=== PATIENT | female | born 1960 | race Caucasian/White ===

== ENCOUNTER → 2017-05-06 09:11 | Outpatient (REF) | payer OTHER, SELFPAY ==
[2017-05-06 14:03] LABS: Amphetamine/Metha Screen,Urine Negative ng/mL (<1000); Barbiturates Screen,Urine Positive ng/mL (<200); Benzodiazepines Screen,Urine Positive ng/mL (200); Cannabinoid Screen,Urine Negative ng/mL (<50); Cocaine Screen,Urine Negative ng/g (<300); Methadone Screen,Urine Negative ng/mL (<300); Opiate Screen,Urine Negative ng/mL (<300); Phencyclidine Screen,Urine Negative ng/mL (<25)
[2017-05-06 14:08] LABS: Basophils # 0.1 K/mm3 (0-0.2); Basophils % 0.9 % (0.1-2.0); Eosinophils # 0.3 K/mm3 (0.0-0.4); Eosinophils % 4.5 % (0.1-12.0); Hematocrit 47.9 % (37.0-47.0); Hemoglobin 15.6 g/dL (12.2-16.2); Lymphocytes # 1.5 K/mm3 (0.7-4.5); Mean Corpuscular HGB Conc 32.5 g/dL (31.8-35.4); Mean Corpuscular Hemoglobin 29.3 pg (27.0-31.2); Mean Corpuscular Volume 90.1 fl (81-99); Mean Platelet Volume 9.1 fl (7.4-10.4); Monocytes # 0.4 K/mm3 (0.1-1.0); Monocytes % 7.1 % (1.7-9.3); Neutrophils # 3.7 K/mm3 (1.8-7.8); Neutrophils % 62.5 % (37.0-80.0); Platelet Count 276 K/mm3 (142-424); Red Blood Count 5.32 M/mm3 (4.20-5.40); Red Cell Distribution Width 12.8 % (11.5-17.5); White Blood Count 5.9 K/mm3 (4.8-10.8)
[2017-05-06 14:26] LABS: Alanine Aminotransferase 17 U/L (12-78); Albumin/Globulin Ratio 1.1 (1.1-1.8); Alkaline Phosphatase 72 U/L (46-116); Aspartate Amino Transferase 16 U/L (15-37); Bilirubin,Total 0.4 mg/dL (0.2-1.0); Blood Urea Nitrogen 14 mg/dL (7-18); Calcium 9.4 mg/dL (8.5-10.1); Carbon Dioxide 29 mmol/L (21.0-32.0); Chloride 103 mmol/L (98-107); Chol/HDL Ratio 5.1 (1-3.5); Cholesterol 258 mg/dL (140-200); Creatinine,Serum 0.94 mg/dL (0.55-1.02); Estimated Glomerular Filt Rate 62 ml/min (>60); Free T4 (Free Thyroxine) 0.85 ng/dl (0.76-1.46); GFR (African American) 75 ML/MIN (>60); Globulin 3.5 gm/dl (1.3-3.2); Glucose 100 mg/dL (74-106); HDL Cholesterol 51 mg/dL (29-89); LDL Cholesterol 168 mg/dL (0-130); Sodium 139 mmol/L (136-145); Thyroid Stimulating Hormone 8.97 uIU/ml (0.358-3.740); Total Protein,Serum 7.5 gm/dL (6.4-8.2); Triglycerides 194 mg/dL (30-200); VLDL Cholesterol 39 mg/dL (0-40)
[2017-05-06 14:51] LABS: Hemoglobin A1C 5.7 % (0.0-7.0)
[2017-05-07 13:38] LABS: Vitamin D 25 Hydroxy 35.3 ng/mL (30.0-100.0)
== END ==
LOC: LAB 09:11
PROVIDERS: Visit Provider Nurse Practitioner Family
DX: Z79.899 Other long term (current) drug therapy (principal); N15.9 Renal tubulo-interstitial disease, unspecified; R53.83 Other fatigue
CPT/HCPCS: 80053; 80061; 80305; 82652; 83036; 84439; 84443; 85025; 87086

== ENCOUNTER 2017-07-05 18:21 | Emergency (ER) | payer OTHER, SELFPAY ==
--- NOTE | 2017-07-05 18:26 | XR_ITS ---
XR ankle LT min 3V HISTORY: Post traumatic pain ITS.REASON: FELL AT HOME ORDERING PHYSICIAN: Clari Swann PATIENT AGE: 57 years COMPARISON: None FINDINGS: No obvious fracture or dislocation. There is prominent soft tissue swelling overlying the lateral malleolus. There is also increased density along the anterior aspect of the ankle joint suggesting an underlying effusion. IMPRESSION: 1. No acute fracture. 2. Soft tissue swelling laterally with suspected ankle joint effusion
[2017-07-05 18:48] VITALS: PULSE 76; RESP 18; TEMP 36.8; O2SAT 96; BMI 27.4
--- NOTE | 2017-07-05 18:53 | HMH.EDUTC ---
[facility] Disposition Clinical Impression: Ankle sprain Qualifiers: Encounter type: initial encounter Involved ligament of ankle: other ligament Laterality: left Qualified Code(s): S93.492A - Sprain of other ligament of left ankle, initial encounter Disposition: Home, Self-Care Condition on Discharge: Good Instructions: Ankle Sprain, DI for Ankle Sprain, How to Use Crutches Additional Instructions: *RICE, Rest the extremity, Ice 15-20 minutes 3-4 times daily, Compress- wear the nico wrap as discussed as much as possible to help reduce swelling and pain, Elevate the extremity when at rest *Nico wrap is for support and help control swelling, use it except in the shower. Be sure that is not to tight but not to loose either *Elevate when resting *Ibuprofen every 6-8 hours as needed for pain an inflammation. If need something more can take Tylenol in between doses of Ibuprofen to help Immediately follow up for new or worsening of symptoms, or no noticeable improvement over the next 3-[address] Follow up with Dr Ariza as advised Straight to ER if any emergent complications Prescriptions: Ibuprofen [Ibuprofen 600mg Tab] 600 mg PO Q6H PRN #20 tab PRN Reason: Moderate Pain Referrals: Alexander Briceño MD [Primary Care Provider] - 3 days Sunni Ariza DPM [Physician] - Time of Disposition: 19:15 Medical Decision Making - Medical Records Medical records reviewed: Yes: I reviewed the patient's medical records. - Juvencio Inquiry Pt receiving controlled substance: No Juvencio was queried for this patient: No Vital Signs: 07/05/17 18:48 07/05/17 18:59 Temperature 98.2 F 98.2 F Temperature Source Temporal Artery Scan Pulse Rate 76 Pulse Rate [Right] 76 Respiratory Rate 18 18 Blood Pressure 142/88 02 Sat by Pulse Oximetry 96 Oxygen Delivery Method Room Air Orders (Tests/Meds): ORDERS Category Date Time Status XR ankle LT min 3V Stat Exams 07/05/17 18:26 Taken - Radiology Data #1 Image(s): Ankle Image Reviewed: Yes I reviewed the patient's radiology image w/the ED provider Preliminary Findings: No Fracture Seen [facility] HPI - General Stated complaint: AO [id number] injured left ankle Time Seen by Provider: 07/05/17 18:30 Mode of Arrival: Ambulatory Source of Information: Patient Limitations: No Limitations Description of Symptoms (Recalled from Triage Doc. by RN): ROLLED LEFT ANKLE 1700 HEENT Symptoms (Recalled from RN notes): No Resp Symptoms (Recalled from RN notes): No Skin Symptoms (Recalled from RN notes): No MS Symptoms (Recalled from RN notes): Yes Functional Status (Recalled from RN notes): N - History of Present Illness Provider Complaint: Patient was helping family member feed animals when she slipped and rolled her left ankle on uneven ground State that she noticed immediately that she had a large swollen goose egg knot on her ankle area so she went home propped it up and put ice on it States that it was looking a little better then she noticed it started swelling again so she came in to get it xrayed and checked out - Related Data Home Medications Medication Instructions Recorded Confirmed zwjljjpdhf-kzzfokzxglgxq-qyecgqrd cap PO 05/06/17 50 mg-500 mg-40 mg capsule promethazine 25 mg tablet 25 mg PO ONCE 05/06/17 rizatriptan 10 mg tablet 10 mg PO ONCE 05/06/17 topiramate XR 100 mg 100 mg PO QDAY 05/06/17 capsule,extended release 24 hr Previous Rx's Medication Instructions Recorded atenolol 25 mg tablet 25 mg PO ONCE #30 tab 05/06/17 hydroxyzine HCl 25 mg tablet 50 mg PO TID-QID PRN #120 tab 05/06/17 ranitidine 150 mg capsule 150 mg PO BID #60 cap 05/06/17 atorvastatin 10 mg tablet 10 mg PO QHS 90 Days #90 tab 05/08/17 levothyroxine 25 mcg tablet 25 mcg PO ONCE 90 Days #90 tab 05/08/17 Ibuprofen [Ibuprofen 600mg Tab] 600 mg PO Q6H PRN #20 tab 07/05/17 Allergies Allergy/AdvReac Type Severity Reaction Status Date / Time Sulfa (Sulfonamide Allergy Severe TR
--- NOTE | 2017-07-05 18:56 | ED_ITS ---
[facility] [place] Clinical Impression: Ankle sprain Qualifiers: Encounter type: initial encounter Involved ligament of ankle: other ligament Laterality: left Qualified Code(s): S93.492A - Sprain of other ligament of left ankle, initial encounter Disposition: Home, Self-Care Condition on Discharge: Good Instructions: Ankle Sprain, DI for Ankle Sprain, How to Use Crutches Additional Instructions: *RICE, Rest the extremity, Ice 15-20 minutes 3-4 times daily, Compress- wear the nico wrap as discussed as much as possible to help reduce swelling and pain, Elevate the extremity when at rest *Nico wrap is for support and help control swelling, use it except in the shower. Be sure that is not to tight but not to loose either *Elevate when resting *Ibuprofen every 6-8 hours as needed for pain an inflammation. If need something more can take Tylenol in between doses of Ibuprofen to help Immediately follow up for new or worsening of symptoms, or no noticeable improvement over the next 3-[address] Follow up [address] Dr Ariza as advised Straight to ER if any emergent complications Prescriptions: Ibuprofen [Ibuprofen 600mg Tab] 600 mg PO Q6H PRN #20 tab PRN Reason: Moderate Pain Referrals: Alexander Briceño MD [Primary Care Provider] - 3 days Sunni Ariza DPM [Physician] - Time of Disposition: 19:15 Medical Decision Making - Medical Records Medical records reviewed: Yes: I reviewed the patient's medical records. - Juvencio Inquiry Pt receiving controlled substance: No Juvencio was queried for this patient: No Vital Signs: 07/05/17 18:48 07/05/17 18:59 Temperature 98.2 F 98.2 F Temperature Source Temporal Artery Scan Pulse Rate 76 Pulse Rate [Right] 76 Respiratory Rate 18 18 Blood Pressure 142/88 02 Sat by Pulse Oximetry 96 Oxygen Delivery Method Room Air Orders (Tests/Meds): ORDERS Category Date Time Status XR ankle LT min 3V Stat Exams 07/05/17 18:26 Taken - Radiology Data #1 Image(s): Ankle Image Reviewed: Yes I reviewed the patient's radiology image w/the ED provider Preliminary Findings: No Fracture Seen [facility] [place] - General Stated complaint: AO [id number] injured left ankle Time Seen by Provider: 07/05/17 18:30 Mode of Arrival: Ambulatory Source of Information: Patient Limitations: No Limitations Description of Symptoms (Recalled from Triage Doc. by RN): ROLLED LEFT ANKLE 1700 HEENT Symptoms (Recalled from RN notes): No Resp Symptoms (Recalled from RN notes): No Skin Symptoms (Recalled from RN notes): No MS Symptoms (Recalled from RN notes): Yes Functional Status (Recalled from RN notes): N - History of Present Illness Provider Complaint: Patient was helping family member feed animals when she slipped and rolled her left ankle on uneven ground State that she noticed immediately that she had a large swollen goose egg knot on her ankle area so she went home propped it up and put ice on it States that it was looking a little better then she noticed it started swelling again so she came in to get it xrayed and checked out - Related Data Home Medications Medication Instructions Recorded Confirmed dizosulkzz-efrxnhaoavoel-rqbjscbj cap PO 05/06/17 50 mg-500 mg-40 mg capsule promethazine 25 mg tablet 25 mg PO ONCE 05/06/17 rizatriptan 10 mg tablet 10 mg PO ONCE 05/06/17 topiramate XR 100 mg 100 mg PO QDAY 05/06/17 capsule,exten
[2017-07-05 18:59] VITALS: BP 142/88; PULSE 76; RESP 18; TEMP 36.8
== END 2017-07-05 19:24 | disposition home or self-care (01) ==
PROVIDERS: Emergency Provider Nurse Practitioner; PCP Emergency Medicine
DX: S93.492A Sprain of other ligament of left ankle, initial encounter (principal); X50.1XXA Overexertion from prolonged static or awkward postures, initial encounter; Y92.73 Farm field as the place of occurrence of the external cause; Z88.2 Allergy status to sulfonamides; Z88.6 Allergy status to analgesic agent
CPT/HCPCS: 29515; 73610; 99203

== ENCOUNTER → 2017-07-10 08:49 | Outpatient (CLI) | payer OTHER, SELFPAY ==
--- NOTE | 2017-07-10 08:51 | XR_ITS ---
XR foot wt bearing RT 3V HISTORY: Right foot pain ORDERING PHYSICIAN: Sunni Ariza DPM PATIENT AGE: 57 years COMPARISON: None FINDINGS: There is mild hallux valgus with first metatarsophalangeal angle of 27 degrees and mild osteoarthritic change of the first MTP joint along with bony hypertrophic changes of the distal aspect of the first metatarsal. No other significant anomalies are evident other than a mildly prominent calcaneal spur at 9 mm. IMPRESSION: Hallux valgus with bunion formation. Calcaneal spur
--- NOTE | 2017-07-10 08:51 | XR_ITS ---
XR foot wt bearing LT 3V HISTORY: Foot pain ORDERING PHYSICIAN: Sunni Ariza DPM PATIENT AGE: 57 years COMPARISON: None FINDINGS: No fracture or dislocation. No lytic or blastic change. There is normal mineralization.. The joint spaces are well-preserved. No significant degenerative/arthritic changes. No erosive changes evident. There is a small calcaneal spur nonspecific IMPRESSION: Negative, no acute finding
== END ==
PROVIDERS: PCP Emergency Medicine; Visit Provider Podiatrist
DX: S99.912A Unspecified injury of left ankle, initial encounter (principal)
CPT/HCPCS: 73630

== ENCOUNTER → 2017-07-19 14:15 | Outpatient (CLI) | payer OTHER, SELFPAY ==
[2017-07-19 15:07] LABS: Basophils % 0.5 % (0.1-2.0); Eosinophils # 0.2 K/mm3 (0.0-0.4); Eosinophils % 2.2 % (0.1-12.0); Hematocrit 47.3 % (37.0-47.0); Hemoglobin 15.7 g/dL (12.2-16.2); Lymphocytes # 1.4 K/mm3 (0.7-4.5); Mean Corpuscular HGB Conc 33.2 g/dL (31.8-35.4); Mean Corpuscular Hemoglobin 29.4 pg (27.0-31.2); Mean Corpuscular Volume 88.5 fl (81-99); Mean Platelet Volume 7.9 fl (7.4-10.4); Monocytes # 0.4 K/mm3 (0.1-1.0); Monocytes % 5.1 % (1.7-9.3); Neutrophils # 5.5 K/mm3 (1.8-7.8); Neutrophils % 74.1 % (37.0-80.0); Platelet Count 337 K/mm3 (142-424); Red Blood Count 5.34 M/mm3 (4.20-5.40); Red Cell Distribution Width 12.5 % (11.5-17.5); White Blood Count 7.5 K/mm3 (4.8-10.8)
[2017-07-19 15:17] LABS: Alanine Aminotransferase 16 U/L (12-78); Albumin Level 4.1 gm/dL (3.4-5.0); Alkaline Phosphatase 83 U/L (46-116); Amylase 64 U/L (25-125); Anion Gap 12.8 mEq/L (5-15); Aspartate Amino Transferase 16 U/L (15-37); Bilirubin,Total 0.4 mg/dL (0.2-1.0); Blood Urea Nitrogen 9 mg/dL (7-18); Calcium 9.5 mg/dL (8.5-10.1); Carbon Dioxide 28 mmol/L (21.0-32.0); Chloride 104 mmol/L (98-107); Cholesterol 243 mg/dL (140-200); Creatinine,Serum 0.91 mg/dL (0.55-1.02); Estimated Glomerular Filt Rate 64 ml/min (>60); GFR (African American) 78 ML/MIN (>60); Glucose 111 mg/dL (74-106); HDL Cholesterol 49 mg/dL (29-89); LDL Cholesterol 166 mg/dL (0-130); Potassium 3.8 mmoL/L (3.5-5.1); Sodium 141 mmol/L (136-145); Total Protein,Serum 8.1 gm/dL (6.4-8.2); Triglycerides 140 mg/dL (30-200); VLDL Cholesterol 28 mg/dL (0-40)
[2017-07-22 15:29] LABS: H. pylori Breath Test Negative (Negative)
== END ==
PROVIDERS: Visit Provider Nurse Practitioner Family
DX: R53.83 Other fatigue (principal); R11.10 Vomiting, unspecified
CPT/HCPCS: 36415; 80053; 80061; 82150; 83013; 85025

== ENCOUNTER → 2018-02-11 13:42 | Outpatient (CLI) | payer OTHER, SELFPAY ==
[2018-02-11 14:38] LABS: Amphetamine/Metha Screen,Urine Negative ng/mL (<1000); Barbiturates Screen,Urine Positive ng/mL (<200); Benzodiazepines Screen,Urine Negative ng/mL (<200); Cannabinoid Screen,Urine Negative ng/mL (<50); Cocaine Screen,Urine Negative ng/mL (<300); Methadone Screen,Urine Negative ng/mL (<300); Opiate Screen,Urine Negative ng/mL (<300); Phencyclidine Screen,Urine Negative ng/mL (<25)
[2018-02-18 07:29] LABS: Barbiturates Positive (.)
== END ==
PROVIDERS: Visit Provider Nurse Practitioner Family
DX: Z79.899 Other long term (current) drug therapy (principal)
CPT/HCPCS: 80305; 80345

== ENCOUNTER → 2018-04-01 11:03 | Outpatient (CLI) | payer OTHER, SELFPAY ==
[2018-04-01 12:05] LABS: Blood Urea Nitrogen 13 mg/dL (7-18); Creatinine,Serum 0.73 mg/dL (0.55-1.02); Estimated Glomerular Filt Rate 83 ml/min (>60); GFR (African American) 100 ML/MIN (>60)
== END ==
PROVIDERS: Visit Provider Podiatrist
DX: S93.492D Sprain of other ligament of left ankle, subsequent encounter (principal)
CPT/HCPCS: 36415; 82565; 84520

== ENCOUNTER → 2018-04-02 09:16 | Outpatient (CLI) | payer OTHER, SELFPAY ==
--- NOTE | 2018-04-02 09:18 | MR_ITS ---
MR ankle LT wo/w con CLINICAL INDICATION: Persistent ankle pain following injury with limited range of motion ITS.REASON: ankle pain ORDERING PHYSICIAN: Sunni Ariza DPM PATIENT AGE: 57 years Comparison: 07/05/2017 FINDINGS: No fracture or dislocation apparent. No abnormal bone marrow edema. The talar dome has an unremarkable appearance. No obvious bone bruises. The tendons appear intact. There is some mild thinning of the anterior talofibular ligament. Posterior talofibular ligament as well as the anterior and posterior tibiofibular ligaments appear intact. The deltoid ligament appears intact. There is normal alignment. No abnormal enhancement apparent. IMPRESSION: 1. There is thinning of the anterior talofibular ligament which could represent chronic sprain or chronic partial tear. 2. Otherwise negative MRI of the left ankle
--- NOTE | 2018-04-02 10:26 | HMH.ITSHM ---
Current Home Medications as stated by this patient Kalani Eric or screening representative. []RANITIDINE ATENOLOL TOPIRAMATE LEVOTHYROXINE HYDROXYZINE HCL
== END ==
PROVIDERS: PCP Emergency Medicine; Visit Provider Podiatrist
DX: M25.572 Pain in left ankle and joints of left foot (principal); S93.492D Sprain of other ligament of left ankle, subsequent encounter; G89.29 Other chronic pain
CPT/HCPCS: 73223; A9576

== ENCOUNTER → 2018-10-14 13:18 | Outpatient (CLI) | payer OTHER, SELFPAY | PROVIDERS: PCP Family Medicine; Visit Provider Nurse Practitioner Family | DX: G47.33 Obstructive sleep apnea (adult) (pediatric) (principal); G47.19 Other hypersomnia; R06.83 Snoring; G43.919 Migraine, unspecified, intractable, without status migrainosus | CPT/HCPCS: 95806 ==

== ENCOUNTER → 2019-04-23 14:21 | Outpatient (CLI) | payer OTHER, SELFPAY ==
--- NOTE | 2019-04-23 14:27 | XR_ITS ---
PROCEDURE: XR ANKLE WT BEARING LT MIN 3V CLINICAL INDICATION: foot pain COMPARISON: No exams were available for comparison FINDINGS: No fracture, dislocation, lytic change, or blastic change evident. No significant degenerative change IMPRESSION: Negative left ankle Dictated by: Abhinav Paulino MD 04/23/2019 17:54 Electronically signed by Abhinav Paulino MD in [place] 04/23/2019 17:54
--- NOTE | 2019-04-23 14:27 | XR_ITS ---
PROCEDURE: XR ANKLE WT BEARING RT MIN 3V CLINICAL INDICATION: foot pain COMPARISON: XR FOOT WT BEARING RT 3V from 04/23/2019 FINDINGS: No fracture, dislocation, lytic change, or blastic change evident. No significant degenerative change IMPRESSION: Negative right ankle Dictated by: Abhinav Paulino MD 04/23/2019 17:55 Electronically signed by Abhinav Paulino MD in [place] 04/23/2019 17:55
--- NOTE | 2019-04-23 14:27 | XR_ITS ---
PROCEDURE: XR FOOT WT BEARING LT 3V CLINICAL INDICATION: foot pain COMPARISON: [id number] XR foot wt bearing RT 3V from 07/10/2017 [id number] XR foot wt bearing LT 3V from 07/10/2017 FINDINGS: No fracture or dislocation. No lytic or blastic change. There is normal mineralization. The joint spaces are well-preserved. No significant degenerative/arthritic changes. No erosive changes evident. Other findings:Normal alignment IMPRESSION: Negative left foot Dictated by: Abhinav Paulino MD 04/23/2019 17:55 Electronically signed by Abhinav Paulino MD in [place] 04/23/2019 17:55
--- NOTE | 2019-04-23 14:27 | XR_ITS ---
PROCEDURE: XR FOOT WT BEARING RT 3V CLINICAL INDICATION: foot pain COMPARISON: [id number] XR foot wt bearing RT 3V from 07/10/2017 [id number] XR foot wt bearing LT 3V from 07/10/2017 FINDINGS: No fracture or dislocation. No lytic or blastic change. There is normal mineralization. There is mild hallux valgus with mild osteoarthritic change of the 1st MTP joint with bunion formation at the distal aspect of the 1st metatarsal. Bony hypertrophic changes are present at the distal aspect of the 1st metatarsal with some periarticular subcortical lucencies. This may only be due to asymmetric hypertrophic change or could also be seen with chronic episodes of gout. This appears similar compared to 07/10/2017. There is a small calcaneal spur. IMPRESSION: 1. No change with no acute finding. 2. Hallux valgus with osteoarthritis and subcortical lucencies at the bunion formation of the 1st metatarsal which could be seen with gout Dictated by: Abhinav Paulino MD 04/23/2019 17:58 Electronically signed by Abhinav Paulino MD in [place] 04/23/2019 17:58
== END ==
PROVIDERS: PCP Family Medicine; Visit Provider Podiatrist
DX: M20.12 Hallux valgus (acquired), left foot (principal); M20.11 Hallux valgus (acquired), right foot; M79.672 Pain in left foot; M79.671 Pain in right foot; M25.572 Pain in left ankle and joints of left foot
CPT/HCPCS: 73610; 73630

== ENCOUNTER 2020-11-19 10:32 | Emergency (ER) | payer OTHER, SELFPAY ==
[2020-11-19 10:33] VITALS: BP 139/68; PULSE 89; RESP 18; TEMP 38.3; O2SAT 93; BMI 22.3
--- NOTE | 2020-11-19 10:50 | XR_ITS ---
PROCEDURE INFORMATION: Exam: XR Chest Exam date and time: 11/19/2020 10:50 AM Age: 60 years old Clinical indication: Cough; Additional info: Cough and congestion TECHNIQUE: Imaging protocol: XR of the chest. Views: 2 views. COMPARISON: CR CXR2V XR chest 2V 04/28/2018 9:29 AM FINDINGS: Lungs: No evidence of acute pulmonary process. Pleural spaces: Unremarkable. No pleural effusion. No pneumothorax. Heart/Mediastinum: Unremarkable. No cardiomegaly. Bones/joints: Unremarkable. Intraperitoneal space: There are surgical clips in the right upper quadrant. IMPRESSION: No evidence of acute pulmonary process.
--- NOTE | 2020-11-19 11:16 | HMH.EDUTC ---
[facility] [place] Disposition Clinical Impression: Pneumonia, Croupy cough Disposition: Home, Self-Care Condition on Discharge: Good Instructions: DI for Pneumonia -- Adult Prescriptions: methylPREDNISolone [Medrol 4mg tab] 4 mg PO DIRECTED #21 tab Transmission Status: Received by [id number] Cefdinir [Omnicef 300mg Capsule] 300 mg PO BID #20 cap Transmission Status: Pending to [facility] Promethazine/Dextromethorphan [Promethazine-Dm Syrup] 5 ml PO Q4HP PRN 5 Days #120 ml MDD 30ML/DAY PRN Reason: Cough Transmission Status: [facility] Referrals: Shellie Denson [Primary Care Provider] - Time of Disposition: 11:42 Medical Decision Making - Juvencio Inquiry Pt receiving controlled substance: No Vital Signs: 11/19/20 10:33 Temperature 100.9 F H Temperature Source Oral Pulse Rate [Left Radial] 89 Respiratory Rate 18 Blood Pressure [Right Arm] 139/68 Blood Pressure Mean [Right Arm] 91 Blood Pressure Source [Right Arm] Automatic Cuff Blood Pressure Position [Right Arm] Sitting 02 Sat by Pulse Oximetry 93 L Oxygen Delivery Method Room Air Orders (Tests/Meds): ORDERS Category Date Time Status CXR 2 view (NOT portable) [XR chest 2V] Stat Exams 11/19/20 10:50 Taken - Radiology Data #1 Image(s): Chest Image Reviewed: Yes I reviewed the patient's radiology image Preliminary Findings: Abnormal (infiltrate) [facility] [place] HPI - General Stated complaint: cough, headache Time Seen by Provider: 11/19/20 11:16 Mode of Arrival: Ambulatory Source of Information: Patient Limitations: No Limitations Description of Symptoms (Recalled from Triage Doc. by RN): c/o cough with green mucus and headache HEENT Symptoms (Recalled from RN notes): Yes Resp Symptoms (Recalled from RN notes): Yes Skin Symptoms (Recalled from RN notes): No MS Symptoms (Recalled from RN notes): No Functional Status (Recalled from RN notes): na - History of Present Illness Provider Complaint: Cough, headache, fever X 2 days. Cough productive of green sputum. Cough makes headache worse. Denies ear pain or sore throat. Denies nausea, vomiting, diarrhea. Denies sick contacts. Onset (ago): day(s) (2) Location: chest Relieving factors: none Exacerbating factors: none Associated symptoms: denies other symptoms, cough Treatments prior to arrival: none - Related Data Home Medications Medication Instructions Recorded Confirmed lisinopril 10 mg tablet 10 mg PO DAILY 01/08/19 05/10/20 metoprolol succinate 25 mg 25 mg PO DAILY 01/08/19 05/10/20 tablet,extended release 24 hr diphenhydramine HCl 25 mg tablet 25 mg PO BID PRN tab 05/13/19 05/10/20 hydroxyzine HCl 25 mg tablet 25 mg PO ONCE PRN tab 05/13/19 05/10/20 omeprazole 20 mg capsule,delayed 20 mg PO DAILY cap 12/31/19 05/10/20 release Previous Rx's Medication Instructions Recorded diclofenac sodium 1 % topical gel 4 g TOPICAL QID PRN #30 g 04/23/19 metoclopramide HCl 10 mg tablet 10 mg PO DAILY PRN 30 Days #30 tab 01/04/20 erenumab-aooe 140 mg/mL 140 mg SQ QMONTH #1 ml 05/10/20 subcutaneous auto-injector naproxen 250 mg tablet 250 mg PO BID PRN 30 Days #60 tab 05/10/20 topiramate 50 mg tablet 150 mg PO DAILY 30 Days #90 tab 05/10/20 Cefdinir [Omnicef 300mg Capsule] 300 mg PO BID #20 cap 11/19/20 Promethazine/Dextromethorphan 5 ml PO Q4HP PRN 5 Days #120 ml 11/19/20 [Promethazine-Dm Syrup] MDD 30ML/DAY methylPREDNISolone [Medrol 4mg 4 mg PO DIRECTED #21 tab 11/19/20 tab] Allergies Allergy/AdvReac Type Severity Reaction Status Date / Time Sulfa (Sulfonamide Allergy Severe TROUBLE Verified 05/10/20 09:44 Antibiotics) BREATHING [SULFA (SULFONAMIDE ANTIBIOTICS)] butorphanol [From STADOL] Allergy Intermediate MAKES CRAZY Verified 05/10/20 09:44 - Worker's Comp Is this a Worker's Comp case?: No [facility] History - Hepatitis A Screen Drug use history?: No High risk sexual behaviors?: No History of
[2020-11-19 11:44] VITALS: BP 139/68; PULSE 89; RESP 18; TEMP 38.3; O2SAT 93
== END 2020-11-19 11:46 | disposition home or self-care (01) ==
PROVIDERS: Emergency Provider Physician Assistant; PCP Family Medicine
DX: J18.9 Pneumonia, unspecified organism (principal); K21.9 Gastro-esophageal reflux disease without esophagitis; I10 Essential (primary) hypertension; E78.5 Hyperlipidemia, unspecified; E03.9 Hypothyroidism, unspecified; F41.9 Anxiety disorder, unspecified; Z88.2 Allergy status to sulfonamides; Z79.899 Other long term (current) drug therapy
CPT/HCPCS: 71046; 99202; G0463

== ENCOUNTER → 2020-11-22 18:14 | Outpatient (CLI) | payer OTHER, SELFPAY | PROVIDERS: Visit Provider Family Medicine | DX: Z20.822 Contact with and (suspected) exposure to COVID-19 (principal); U07.1 COVID-19 | CPT/HCPCS: U0003 ==

== ENCOUNTER 2020-11-28 10:52 | Inpatient (IN) | payer OTHER, SELFPAY ==
[2020-11-28] VITALS (10 sets, daily range): BP systolic 123–146; BP diastolic 72–87; PULSE 67–89; RESP 16–24; TEMP 36.8–37.1; O2SAT 87–96; BMI 25.7; BMI 24.7; BMI 25.6
--- NOTE | 2020-11-28 11:13 | XR_ITS ---
PROCEDURE: XR CHEST PORTABLE CLINICAL HISTORY: cough COMPARISON: CR CXR2V XR chest 2V from 02/24/2018 CR CXR2V XR chest 2V from 04/28/2018 CR XR CHEST 2V from 11/19/2020 FINDINGS: The cardiomediastinal silhouette and pulmonary vascularity are within normal limits. The increased density noted in the lung bases on both sides consistent with bilateral lower lobe pneumonia slightly greater on the right compared to the left. Upper lobes are clear. No acute bony abnormalities. IMPRESSION: Bibasilar pneumonia Dictated by: Abhinav Paulino MD 11/28/2020 12:17 Abhinav Paulino MD in [place] 11/28/2020 12:17
[2020-11-28 11:57] LABS: Basophils # 0.1 K/mm3 (0-0.2); Basophils % 1.6 % (0.1-2.0); Eosinophils % 0.5 % (0.1-12.0); Hematocrit 47.6 % (37.0-47.0); Hemoglobin 15.9 g/dL (12.2-16.2); Lymphocytes # 0.7 K/mm3 (0.7-4.5); Lymphocytes % 18.2 % (10-50); Mean Corpuscular HGB Conc 33.5 g/dL (31.8-35.4); Mean Corpuscular Hemoglobin 29.1 pg (27.0-31.2); Mean Platelet Volume 8.6 fl (7.4-10.4); Monocytes # 0.2 K/mm3 (0.1-1.0); Monocytes % 5.4 % (1.7-9.3); Neutrophils # 2.7 K/mm3 (1.8-7.8); Neutrophils % 74.2 % (37.0-80.0); Platelet Count 129 K/mm3 (142-424); Red Blood Count 5.47 M/mm3 (4.20-5.40); Red Cell Distribution Width 13.4 % (11.5-17.5); White Blood Count 3.6 K/mm3 (4.8-10.8)
[2020-11-28 11:58] LABS: ABG Base Excess -0.7 mmol/L (-2.4-2.3); ABG Oxygen Saturation 94 % (90-100); ABG PCO2 32.8 mmhg (35.0-45.0); ABG PH 7.46 mmol/L (7.35-7.45); ABG PO2 63.8 mmhg (80-100)
[2020-11-28 11:59] LABS: Allen's Test Acceptable; Oxygen 2L NC %; Source Left Radial
--- NOTE | 2020-11-28 12:03 | HMH.EDGENADL ---
ED Disposition Clinical Impression: Acute respiratory failure with hypoxia, Pneumonia due to COVID-19 virus, Acute kidney injury Disposition: Admitted As Inpatient Condition on Discharge: Fair Referrals: Shellie Denson [Primary Care Provider] - - Critical Care Critical Care Time: No Attestation: On 11/28/20, the high probability of a clinically significant, sudden or life threatening deterioration of the following system(s) required my full and direct attention, intervention and personal management. The time I documented below is in addition to time spent performing reported procedures but includes the following listed in this critical care notation. Medical Decision Making - Medical Records Medical records reviewed: Yes: I reviewed the patient's medical records. - Juvencio Inquiry Pt receiving controlled substance: No Vital Signs: 11/28/20 10:54 11/28/20 11:15 11/28/20 12:00 Temperature 98.7 F Temperature Source Oral Pulse Rate 85 82 Pulse Rate [Radial] 89 Respiratory Rate 24 22 17 Blood Pressure 133/83 136/80 Blood Pressure [Right Arm] 146/87 H Blood Pressure Mean [Right Arm] 106 Blood Pressure Position [Right Arm] Sitting 02 Sat by Pulse Oximetry 87 L 94 L 95 Oxygen Delivery Method Room Air 11/28/20 12:45 11/28/20 13:15 Temperature Temperature Source Pulse Rate 78 78 Pulse Rate [Radial] Respiratory Rate 21 17 Blood Pressure 136/74 129/78 Blood Pressure [Right Arm] Blood Pressure Mean [Right Arm] Blood Pressure Position [Right Arm] 02 Sat by Pulse Oximetry 96 96 Oxygen Delivery Method - Lab Data Lab Results 11/28/20 11:14: Specimen Source Left radial, O2 % 2l nc, ABG pH 7.46 H, ABG pCO2 32.8 L, ABG pO2 63.8 L, ABG HCO3 23.0, ABG Total CO2 24.0, ABG O2 Saturation 94, ABG Base Excess -0.7, Abhinav Test Acceptable 11/28/20 11:50: WBC 3.6 L, RBC 5.47 H, Hgb 15.9, Hct 47.6 H, MCV 87.0, MCH 29.1, MCHC 33.5, RDW 13.4, Plt Count 129 L, MPV 8.6, Neut % (Auto) 74.2, Lymph % (Auto) 18.2, Piute % (Auto) 5.4, Eos % (Auto) 0.5, Baso % (Auto) 1.6, Neut # (Auto) 2.7, Lymph # (Auto) 0.7, Piute # (Auto) 0.2, Eos # (Auto) 0.0, Baso # (Auto) 0.1 11/28/20 11:50: Sodium 133 L, Potassium 3.9, Chloride 95 L, Carbon Dioxide 29, Anion Gap 12.9, BUN 20 H, Creatinine 1.20 H, Estimated Creat Clear 55, Estimated GFR 46 L, Est GFR ( Amer) 56 L, Glucose 105 H, Calcium 8.2 L, Total Bilirubin 0.7, AST 73 H, ALT 38, Alkaline Phosphatase 56, Troponin I < 0.01, NT-Pro-B Natriuret Pep 113, Total Protein 7.1, Albumin 4.0, Globulin 3.1, Albumin/Globulin Ratio 1.3 Result diagrams: 11/28/20 11:50 11/28/20 11:50 Orders (Tests/Meds): ED MEDICATIONS Discontinued Medications Generic Name Dose Route Start Last Admin Trade Name Tricia PRN Reason Stop Dose Admin Acetaminophen 1,000 mg 11/28/20 11:14 11/28/20 11:32 Acetaminophen 500mg Tab PO 11/28/20 11:15 1,000 mg ONCE ONE Administration Dexamethasone Sodium Phosphate 10 mg 11/28/20 11:14 11/28/20 11:33 Dexamethasone 4mg/Ml 5ml Mdv IV 11/28/20 11:15 10 mg ONCE ONE Administration Sodium Chloride 1,000 mls @ 999 mls/hr 11/28/20 11:15 11/28/20 11:32 Sod Chlor 0.9% 1000ml Bag IV 11/28/20 12:15 999 mls/hr .Q1H1M CHRIS Administration ORDERS Category Date Time Status Consult to Pulmonology [CONS] Stat Cons 11/28/20 13:56 Active Lactic Acid Stat Lab 11/28/20 11:13 Ordered Troponin I Q3H Lab 11/28/20 14:15 Ordered Troponin I Q3H Lab 11/28/20 17:15 Ordered Urinalysis and Microscopic Stat Lab 11/28/20 11:13 Ordered - Radiology Data #1 Image(s): Chest Image Reviewed: Yes I reviewed the patient's radiology results, Yes I reviewed the patient's radiology image, Yes I have reviewed radiologist's interpretation IMPRESSION: Bibasilar pneumonia - Reevaluation(s) Time: 14:00 Reevaluation #1: On reevaluation, patient continues require supplemental oxygen. Chest x-ray is consistent with viral pne
[2020-11-28 12:07] LABS: Alanine Aminotransferase 38 U/L (12-78); Albumin/Globulin Ratio 1.3 (1.1-1.8); Alkaline Phosphatase 56 U/L (38-126); Anion Gap 12.9 mEq/L (5-15); Aspartate Amino Transferase 73 U/L (14-36); Bilirubin,Total 0.7 mg/dl (0.2-1.3); Blood Urea Nitrogen 20 mg/dl (7-17); Calcium 8.2 mg/dl (8.4-10.2); Carbon Dioxide 29 mmol/L (22.0-30.0); Chloride 95 mmol/L (98-107); Creatinine Clearance Estimated 55 mL/min (50-200); Estimated Glomerular Filt Rate 46 ml/min (>60); GFR (African American) 56 ML/MIN (>60); Globulin 3.1 g/dL (1.3-3.2); Glucose 105 mg/dl (74-100); Potassium 3.9 mmoL/L (3.5-5.1); Sodium 133 mmol/L (136-145); Total Protein,Serum 7.1 g/dl (6.3-8.2)
[2020-11-28 12:19] LABS: NT Pro Brain Natriuretic Pep. 113 pg/mL (0-125); Troponin I < 0.01 ng/ml (0.00-0.034)
--- NOTE | 2020-11-28 13:47 | PC.NURSE ---
calling dr mcclelland
--- NOTE | 2020-11-28 14:53 | PC.NURSE ---
REPORT CALLED TO FLOOR
--- NOTE | 2020-11-28 15:43 | HMH.PHAINT ---
MEDICATION RECONCILIATION COMPLETE USING EXTERNAL PHARMACY FILL HISTORY.
--- NOTE | 2020-11-28 15:48 | HMH.HP ---
*Admission Date: 11/28/20 *Chief complaint: SOB *History of present illness: Ms. Eric is a 60-year-old female with a history of hypothyroidism, anxiety, congestive heart failure, GERD, hyperlipidemia, hypertension, and migraine headaches who presented to [facility] emergency room for evaluation after not feeling well for about 2 weeks. She describes progressive shortness of breath with some productive cough and fever. She states she has not been eating or drinking very well. She did see her family physician last week and when she discussed with him her worsening symptoms he directed her to the emergency room. Her family physician is in [facility]. She has not had Covid immunizations as yet. Following is the test: Data from the ER 11/28/20 11:14: Specimen Source Left radial, O2 % 2l nc, ABG pH 7.46 H, ABG pCO2 32.8 L, ABG pO2 63.8 L, ABG HCO3 23.0, ABG Total CO2 24.0, ABG O2 Saturation 94, ABG Base Excess -0.7, Abhinav Test Acceptable 11/28/20 11:50: WBC 3.6 L, RBC 5.47 H, Hgb 15.9, Hct 47.6 H, MCV 87.0, MCH 29.1, MCHC 33.5, RDW 13.4, Plt Count 129 L, MPV 8.6, Neut % (Auto) 74.2, Lymph % (Auto) 18.2, Cavalier % (Auto) 5.4, Eos % (Auto) 0.5, Baso % (Auto) 1.6, Neut # (Auto) 2.7, Lymph # (Auto) 0.7, [place]alier # (Auto) 0.2, Eos # (Auto) 0.0, Baso # (Auto) 0.1 11/28/20 11:50: Sodium 133 L, Potassium 3.9, Chloride 95 L, Carbon Dioxide 29, Anion Gap 12.9, BUN 20 H, Creatinine 1.20 H, Estimated Creat Clear 55, Estimated GFR 46 L, Est GFR ( Amer) 56 L, Glucose 105 H, Calcium 8.2 L, Total Bilirubin 0.7, AST 73 H, ALT 38, Alkaline Phosphatase 56, Troponin I < 0.01, NT-Pro-B Natriuret Pep 113, Total Protein 7.1, Albumin 4.0, Globulin 3.1, Albumin/Globulin Ratio 1.3 Patient received acetaminophen 1000 mg once , dexamethasone 10 mg IV, and a liter of sodium chloride IV. CXR revealed the following: FINDINGS: The cardiomediastinal silhouette and pulmonary vascularity are within normal limits. The increased density noted in the lung bases on both sides consistent with bilateral lower lobe pneumonia slightly greater on the right compared to the left. Upper lobes are clear. No acute bony abnormalities. IMPRESSION: Bibasilar pneumonia At this time of this exam patient is awakened for assessment. She states she is still somewhat short of breath with O2 sats being in the 90s. She describes diffuse body aches and epigastric discomfort. Patient has been seen by Dr. Flor, watch leader, with the following notation: Assessment and Plan for all problems:: #COVID-19 pneumonia: 60-year-old unvaccinated female recent diagnosis of COVID-19 pneumonia from 11/22, symptoms for the last 2 weeks present with worsening respiratory failure. Chest x-ray admission bilateral lower lobe pulmonary infiltrates. Chest x-ray bilateral lower lobe coarse breath sounds along with decreased breath sounds in the right upper lung lindsey. Patient NC O2 weaned to 1 L nasal cannula with saturations maintained at 92 to 95%. Plan: -Initiate remdesivir and dexamethasone -Initiate levofloxacin daily -Follow with COVID-19 serology, nasal MRSA PCR, CRP, D-dimer and LDH -Combivent every 6 hours as needed -Return culture -Chemical DVT prophylaxis [facility] History Medical History: Reports:: Anxiety, Congestive Heart Failure, Gastroesophageal Reflux Disease(GERD), Hyperlipidemia, Hypertension, Migraine *Have you ever received a pneumonia vaccine?: No *Have you received a flu vaccine this season?: No Other Medical History: Reports: Hypothyroidism, Thyroid Disease, Other Other Surgeries: Yes: Cholecystectomy, Hernia Repair, Other Amputation: No Fractures: No - *Social History Smoking Status: Never smoker Alcohol Intake: never Alcohol Intake Frequency:: other Substance Use Type: denies use *Occupational Status:: unemployed Housing: house Household Members: family, spouse *Travel in the last 8 weeks: None - Psychiatric History Pschychiatric History:: Reports:: Anxiety Family Hx:: Stroke
--- NOTE | 2020-11-28 16:03 | P.CONPHA_ITS ---
[facility] Pharmacy VTE Monitoring - Patient Demographics Admission date: 11/28/20 Report Date: 11/28/20 Time: 16:03 Allergies/Adverse Reactions: Patient Allergies Sulfa (Sulfonamide Antibiotics) [SULFA (SULFONAMIDE ANTIBIOTICS)] Allergy (Severe, Verified 05/10/20 09:44) TROUBLE BREATHING butorphanol [From STADOL] Allergy (Intermediate, Verified 05/10/20 09:44) MAKES CRAZY Height: 1.63 m Weight: 65.487 kg Patient Problems: Current Active Problems (Last Updated 05/08/17 @ 13:44 by SHILA Holland) Acute respiratory failure with hypoxia (Acute) Pneumonia due to COVID-19 virus (Acute) Acute kidney injury (Acute) - VTE Risk Labs: VTE Related Lab Results Hgb 15.9 g/dL (12.2-16.2) 11/28/20 11:50 Hct 47.6 % (37.0-47.0) H 11/28/20 11:50 Plt Count 129 K/mm3 (142-424) L 11/28/20 11:50 BUN 20 mg/dl (7-17) H 11/28/20 11:50 Creatinine 1.20 mg/dl (0.52-1.04) H 11/28/20 11:50 Estimated Creat Clear 55 mL/min (50-200) 11/28/20 11:50 - Prophylaxis VTE Prophylaxis Ordered?: Yes Types of VTE Prophylaxis: TEDS Knee High, Pharmacological Location of Applied Device: Bilateral Lower Extremeties Pharmacologic Type: Enoxaparin
--- NOTE | 2020-11-28 16:23 | HMH.PULMCON ---
*Admission Date: 11/28/20 *Reason for consult:: COVID-19 pneumonia *History of present illness: Ms. Eric is a 60-year old female no significant smoking history, carries a diagnosis of asthma using inhalers at baseline presented to hospital complaining of worsening respiratory distress that started 2 weeks ago and has been gradually getting worse. She had a recent diagnosis of COVID-19 pneumonia from nasal MRSA PCR from 11/22/20. He denies any subjective fevers or chills. She admits diffuse body aches. She also admits cough with whitish productive phlegm. [facility] History Medical History: Reports:: Anxiety, Congestive Heart Failure, Gastroesophageal Reflux Disease(GERD), Hyperlipidemia, Hypertension, Migraine *Have you ever received a pneumonia vaccine?: No *Have you received a flu vaccine this season?: No Other Medical History: Reports: Hypothyroidism, Thyroid Disease, Other Other Surgeries: Yes: No Previous Surgery, Cholecystectomy, Hernia Repair, Other Amputation: No Fractures: No - *Social History Last grade of school completed: Some college Smoking Status: Never smoker Alcohol Intake: never Alcohol Intake Frequency:: other Substance Use Type: denies use *Occupational Status:: employed Housing: house Household Members: family, spouse *Travel in the last 8 weeks: None - Psychiatric History Pschychiatric History:: Reports:: Anxiety Family Hx:: Stroke, Heart Attack ROS - Cons Reports anorexia, Reports body ache(s) - Card Reports shortness of breath, Reports shortness of breath with activity - Resp Respiratory: Reports shortness of breath, Denies change in phlegm color, Reports chest congestion, Reports excessive phlegm production - GI Gastrointestingal: Reports: abdominal pain - Musk Musculoskeletal: Reports muscle weakness Meds Home Medications Medication Instructions Recorded Confirmed Type lisinopril 10 mg tablet 10 mg PO DAILY 01/08/19 02/09/21 History metoprolol succinate 25 mg 25 mg PO DAILY 01/08/19 02/09/21 History tablet,extended release 24 hr diclofenac sodium 1 % topical gel 4 g TOPICAL QID PRN #30 g 04/23/19 02/09/21 Rx hydroxyzine HCl 25 mg tablet 25 mg PO QIDP PRN tab 05/13/19 02/09/21 History omeprazole 20 mg capsule,delayed 20 mg PO DAILY cap 12/31/19 02/09/21 History release diphenhydramine HCl 25 mg capsule 25 mg PO Q8H PRN #30 cap 02/09/21 02/09/21 Rx erenumab-aooe 140 mg/mL 140 mg SQ QMONTH #1 ml 02/09/21 02/09/21 Rx subcutaneous auto-injector metoclopramide HCl 10 mg tablet 10 mg PO BID PRN #20 tab 02/09/21 02/09/21 Rx naproxen 250 mg tablet 250 mg PO BID PRN 30 Days #60 tab 02/09/21 02/09/21 Rx topiramate 50 mg tablet 150 mg PO HS 30 Days #90 tab 02/09/21 02/09/21 Rx Allergies Allergy/AdvReac Type Severity Reaction Status Date / Time Sulfa (Sulfonamide Allergy Severe TROUBLE Verified 02/09/21 10:54 Antibiotics) BREATHING [SULFA (SULFONAMIDE ANTIBIOTICS)] butorphanol [From STADOL] Allergy Intermediate MAKES CRAZY Verified 02/09/21 10:54 Exam - Constitutional Constitutional:: Present: no acute distress, comfortable - HENMT Exam HENMT: Present: normocephalic, atraumatic - Eye Exam Eyes:: Present: normal appearance both eyes and related structures - Neck Exam Neck:: Present: normal visual inspection - Respiratory Exam Respiratory:: Present: able to speak in complete sentences, no respiratory distress. Absent: wheezing Comments: Decreased breath sounds the right upper lung lindsey - Cardiovascular Exam Cardiac:: Present: S1, S2 - GI Exam GI:: Present: soft - Skin Exam Skin: Present: warm, no rash, dry - Neurological Exam Neurological: Present: alert, awake, normal cognition - Extremities Exam Extremities: Present: no cyanosis, no clubbing, no edema Internal Medicine - CN: Reslt - Labs CBC & Chem 7: 11/30/20 05:15 11/30/20 05:15 Labs: Short CBC 11/28/20 Range/Units 11:50 WBC 3.6 L (4.8-10.8) K/mm3 Hgb 15.9
--- NOTE | 2020-11-28 19:58 | PC.NURSE ---
SHE IS AOX4, ABLE TO MAKE NEEDS KNOWN TO STAFF, VSS NO NEEDS VOICED
[2020-11-28 20:02] LABS: D-Dimer 0.51 ug/mL (0.0-0.5)
[2020-11-28 20:18] LABS: Coronavirus 19 IgG Antibody Negative (Negative); Coronavirus 19 IgM Antibody Negative (Negative)
[2020-11-28 20:29] LABS: Lactic Acid 1.1 mmol/L (0.7-2.1)
[2020-11-28 21:34] LABS: C-Reactive Protein 22.9 mg/L (0-4)
[2020-11-28 21:54] LABS: Lactate Dehydrogenase 451 U/L (313-618)
[2020-11-29] VITALS (8 sets, daily range): BP systolic 119–154; BP diastolic 69–81; PULSE 66–78; RESP 17–20; TEMP 36.4–37; O2SAT 91–95; BMI 25.4
[2020-11-29 04:02] LABS: Microscopic, Urine URINE MICROSCOPIC (MICROSCOPIC)
[2020-11-29 04:05] LABS: Bilirubin,Urine Negative (Negative); Blood, Urine 2+ (Negative); Color,Urine YELLOW (Yellow); Glucose,Urine (UA) Negative (Negative); Ketones,Urine Negative (Negative); Leukocyte Esterase,Urine TRACE (Negative); Nitrate,Urine Negative (Negative); Protein,Urine Negative (Negative)
[2020-11-29 04:12] LABS: Appearance,Urine Slightly Cloudy (Clear)
[2020-11-29 04:16] LABS: Bacteria,Urine 1+ /lpf
--- NOTE | 2020-11-29 04:40 | PC.NURSE ---
PATIENT IS A&OX4. NO COMPLAINTS OF PAIN NOTED. PATIENTS 02 SATURATIONS DID DROP TO 84-86%. TITRATED OXYGEN ACCORDINGLY. VSS OTHERWISE. PATIENT DID USE BSCX1 ASSIST MULTIPLE TIMES TO URINATE. NO FURTHER CONCERNS NOTED.
[2020-11-29 08:36] LABS: Basophils % 0.8 % (0.1-2.0); Eosinophils % 0.1 % (0.1-12.0); Hematocrit 41.2 % (37.0-47.0); Lymphocytes # 0.6 K/mm3 (0.7-4.5); Lymphocytes % 22.5 % (10-50); Mean Corpuscular HGB Conc 34.1 g/dL (31.8-35.4); Mean Corpuscular Hemoglobin 29.6 pg (27.0-31.2); Mean Platelet Volume 9.5 fl (7.4-10.4); Monocytes # 0.2 K/mm3 (0.1-1.0); Monocytes % 7.9 % (1.7-9.3); Neutrophils # 1.9 K/mm3 (1.8-7.8); Neutrophils % 68.8 % (37.0-80.0); Platelet Count 118 K/mm3 (142-424); Red Blood Count 4.73 M/mm3 (4.20-5.40); Red Cell Distribution Width 13.6 % (11.5-17.5); White Blood Count 2.7 K/mm3 (4.8-10.8)
[2020-11-29 08:40] LABS: Chloride 107 mmol/L (98-107); Sodium 137 mmol/L (136-145)
[2020-11-29 08:41] LABS: Potassium 3.9 mmoL/L (3.5-5.1)
[2020-11-29 08:43] LABS: Anion Gap 11.9 mEq/L (5-15); Blood Urea Nitrogen 17 mg/dl (7-17); Calcium 7.7 mg/dl (8.4-10.2); Carbon Dioxide 22 mmol/L (22.0-30.0); Creatinine Clearance Estimated 93 mL/min (50-200); Estimated Glomerular Filt Rate 86 ml/min (>60); GFR (African American) 104 ML/MIN (>60); Glucose 118 mg/dl (74-100)
[2020-11-29 08:46] LABS: Hemoglobin 14.1 g/dL (12.2-16.2)
--- NOTE | 2020-11-29 09:55 | HMH.ACPN2 ---
Internal Medicine - PN: Subj *Date: 11/29/20 *Time: 09:55 Interval history: I feel that the same as yesterday. Exam Vital signs and Labs for Last 24 Hours: Temp Pulse Resp BP Pulse Ox 97.6 F 74 19 145/78 H 91 L 11/29/20 07:48 11/29/20 07:48 11/29/20 07:48 11/29/20 07:48 11/29/20 07:48 Laboratory Results - last 24 hr 11/28/20 11:14: Specimen Source Left radial, O2 % 2l nc, ABG pH 7.46 H, ABG pCO2 32.8 L, ABG pO2 63.8 L, ABG HCO3 23.0, ABG Total CO2 24.0, ABG O2 Saturation 94, ABG Base Excess -0.7, Abhinav Test Acceptable 11/28/20 11:50: WBC 3.6 L, RBC 5.47 H, Hgb 15.9, Hct 47.6 H, MCV 87.0, MCH 29.1, MCHC 33.5, RDW 13.4, Plt Count 129 L, MPV 8.6, Neut % (Auto) 74.2, Lymph % (Auto) 18.2, Pender % (Auto) 5.4, Eos % (Auto) 0.5, Baso % (Auto) 1.6, Neut # (Auto) 2.7, Lymph # (Auto) 0.7, Pender # (Auto) 0.2, Eos # (Auto) 0.0, Baso # (Auto) 0.1 11/28/20 11:50: Sodium 133 L, Potassium 3.9, Chloride 95 L, Carbon Dioxide 29, Anion Gap 12.9, BUN 20 H, Creatinine 1.20 H, Estimated Creat Clear 55, Estimated GFR 46 L, Est GFR ( Amer) 56 L, Glucose 105 H, Calcium 8.2 L, Total Bilirubin 0.7, AST 73 H, ALT 38, Alkaline Phosphatase 56, Troponin I < 0.01, NT-Pro-B Natriuret Pep 113, Total Protein 7.1, Albumin 4.0, Globulin 3.1, Albumin/Globulin Ratio 1.3 11/28/20 19:15: SARS-CoV-2 IgG Ab (Rapid) Negative, SARS-CoV-2 IgM Ab (Rapid) Negative 11/28/20 19:15: D-Dimer 0.51 H 11/28/20 19:15: Lactate Dehydrogenase 451, C-Reactive Protein 22.9 H 11/28/20 20:15: Lactate 1.1 11/29/20 03:21: Urine Color Yellow, Urine Appearance Slightly cloudy, Urine pH 6.0, Ur Specific [place] 1.020, Urine Protein Negative, Urine Glucose (UA) Negative, Urine Ketones Negative, Urine Blood 2+, Urine Nitrate Negative, Urine Bilirubin Negative, Urine Urobilinogen 1.0, Ur Leukocyte Esterase Trace, Urine RBC 3-5, Urine WBC 3-5, Urine Bacteria 1+ 11/29/20 07:50: WBC 2.7 L, RBC 4.73, Hgb 14.1 D, Hct 41.2, MCV 87.0, MCH 29.6, MCHC 34.1, RDW 13.6, Plt Count 118 L, MPV 9.5, Neut % (Auto) 68.8, Lymph % (Auto) 22.5, Pender % (Auto) 7.9, Eos % (Auto) 0.1, Baso % (Auto) 0.8, Neut # (Auto) 1.9, Lymph # (Auto) 0.6 L, Pender # (Auto) 0.2, Eos # (Auto) 0.0, Baso # (Auto) 0.0 11/29/20 07:50: Sodium 137, Potassium 3.9, Chloride 107, Carbon Dioxide 22 D, Anion Gap 11.9, BUN 17, Creatinine 0.70 D, Estimated Creat Clear 93, Estimated GFR 86, Est GFR ( Amer) 104 D, Glucose 118 H, Calcium 7.7 L I & O for Last 24 hours: Intake & Output 11/26/20 11/27/20 11/28/20 11/29/20 11:59 11:59 11:59 11:59 Intake Total 1723 / 1723 Output Total 0 / 0 Balance 1723 / 1723 Weight 150 lb 149 lb - Constitutional no acute distress - *Routine HEENT Exam Head: Present: normocephalic Eye: Present: PERRL ENT: Present: mucous membranes moist - *Routine Neck Exam Absent: JVD - Routine Chest/Breast/Axilla Exam Chest wall: Absent: tenderness - *Routine Respiratory Exam Present: rales (A few at the bases.), diminished air movement - *Routine Cardiovascular Exam Present: RRR - *Routine Abdominal Exam Present: soft - *Routine Extremities Exam Absent: edema - *Routine Skin Exam Present: intact - *Routine Neurological Exam Present: alert, oriented X3 Assessment and Plan (1) Acute respiratory failure with hypoxia Status: Acute Category: Medical Code(s): J96.01 - Acute respiratory failure with hypoxia (2) Pneumonia due to COVID-19 virus Status: Acute Category: Medical Code(s): U07.1 - COVID-19; J12.82 - Pneumonia due to coronavirus disease 2019 (3) Anxiety Status: Chronic Category: Medical Code(s): F41.9 - Anxiety disorder, unspecified (4) GERD (gastroesophageal reflux disease) Status: Chronic Qualifiers: Esophagitis presence: esophagitis presence not specified Qualified Code(s): K21.9 - Gastro-esophageal reflux disease without esophagitis Category: Medical Code(s): K21.9 - Gastro-esophageal reflux disease without esophagitis (5)
--- NOTE | 2020-11-29 13:20 | HMH.PULMPN ---
Internal Medicine - PN: Subj *Date: 11/29/20 *Time: 13:20 Interval history: No acute respiratory vents overnight. Patient remains on 1 L Except overnight where her oxygen was increased to 3 to 4 L Exam - Constitutional Constitutional:: Present: no acute distress, comfortable - HENMT Exam HENMT: Present: normocephalic, atraumatic - Eye Exam Eyes:: Present: normal appearance both eyes and related structures - Neck Exam Neck:: Present: normal visual inspection - Respiratory Exam Respiratory:: Present: able to speak in complete sentences, no respiratory distress, crackles - Cardiovascular Exam Cardiac:: Present: S1, S2 - GI Exam GI:: Present: soft - Skin Exam Skin: Present: warm, no rash, dry - Neurological Exam Neurological: Present: alert, awake, normal cognition - Extremities Exam Extremities: Present: no cyanosis, no clubbing, no edema Assessment and Plan (1) Acute respiratory failure with hypoxia Status: Acute Category: Medical Code(s): J96.01 - Acute respiratory failure with hypoxia (2) Pneumonia due to COVID-19 virus Status: Acute Category: Medical Code(s): U07.1 - COVID-19; J12.82 - Pneumonia due to coronavirus disease 2019 (3) Anxiety Status: Chronic Category: Medical Code(s): F41.9 - Anxiety disorder, unspecified (4) GERD (gastroesophageal reflux disease) Status: Chronic Qualifiers: Esophagitis presence: esophagitis presence not specified Qualified Code(s): K21.9 - Gastro-esophageal reflux disease without esophagitis Category: Medical Code(s): K21.9 - Gastro-esophageal reflux disease without esophagitis (5) Hyperlipidemia Status: Chronic Category: Medical Code(s): E78.5 - Hyperlipidemia, unspecified (6) Hypertension Status: Chronic Qualifiers: Hypertension type: essential hypertension Qualified Code(s): I10 - Essential (primary) hypertension Category: Medical Code(s): I10 - Essential (primary) hypertension - Assessment and plan all Dx Assessment and Plan for all problems:: #COVID-19 pneumonia: 60-year-old unvaccinated female recent diagnosis of COVID-19 pneumonia from 11/22, symptoms for the last 2 weeks present with worsening respiratory failure. Chest x-ray admission bilateral lower lobe pulmonary infiltrates. Patient O2 requirements remained stable at 1 L nasal cannula except for overnight was intermittently increased to 3 to 4 L. CRP elevated at 22, D-dimer 8.51. COVID-19 IgM and IgG both negative Plan: - F/u nasal MRSA PCR -Continue remdesivir and dexamethasone -Continue levofloxacin daily -Combivent every 6 hours as needed - F/u Sputum culture -Chemical DVT prophylaxis Thank you for involving pulmonary in this patient care. We will continue to follow.
[2020-11-29 16:30] LABS: Adenovirus,PCR Not Detected (NotDetected); Bordetella Pertussis Not Detected (NotDetected); Chlamydophila Pneumoniae, PCR Not Detected (NotDetected); Coronavirus 229E Not Detected (NotDetected); Coronavirus NL63 Not Detected (NotDetected); Coronavirus OC43 Not Detected (NotDetected); Coronovirus HKU1,PCR Not Detected (NotDetected); Human Metapneumovirus Not Detected (NotDetected); Influenza A, PCR Not Detected (NotDetected); Influenza AH1, 2009 Not Detected (NotDetected); Influenza AH1, PCR Not Detected (NotDetected); Influenza AH3,PCR Not Detected (NotDetected); Influenza B, PCR Not Detected (NotDetected); Mycoplasma Pneumoniae, PCR Not Detected (NotDetected); Parainfluenza 1, PCR Not Detected (NotDetected); Parainfluenza 2, PCR Not Detected (NotDetected); Parainfluenza 3, PCR Not Detected (NotDetected); Parainfluenza 4, PCR Not Detected (NotDetected); Respiratory Syncytial Virus Not Detected (NotDetected); Rhinovirus/Enterovirus Not Detected (NotDetected)
--- NOTE | 2020-11-29 17:55 | PC.NURSE ---
SPUTUM INDUCTION: CUP TAKEN TO BEDSIDE AND INSTRUCTED PT TO TRY TO COUGH SAMPLE INTO CUP.
--- NOTE | 2020-11-29 18:27 | PC.NURSE ---
Pt has had a poor appetite this shift. Pt has remained on 1L NC. Pt states she is ready to go back home . No other acute changes or complaints at this time.
[2020-11-30] VITALS: BP 147/79; PULSE 56; RESP 20; TEMP 36.7; O2SAT 95
--- NOTE | 2020-11-30 03:21 | PC.NURSE ---
pt alert and oriented. bath and linen change this shift. iv patent and infusing per order. urine is dark and has a strong odor. vss. call light in reach. will continue to monitor pt condition.
[2020-11-30 03:48] VITALS: BP 151/79; PULSE 64; RESP 20; TEMP 36.9; O2SAT 92
[2020-11-30 03:49] VITALS: BMI 24.9
[2020-11-30 08:00] VITALS: BP 163/83; PULSE 69; RESP 17; TEMP 36.8; O2SAT 94; O2SAT 95
[2020-11-30 08:11] LABS: Basophils % 0.5 % (0.1-2.0); Hematocrit 40.9 % (37.0-47.0); Hemoglobin 13.7 g/dL (12.2-16.2); Lymphocytes # 0.8 K/mm3 (0.7-4.5); Lymphocytes % 18.9 % (10-50); Mean Corpuscular HGB Conc 33.4 g/dL (31.8-35.4); Mean Platelet Volume 10.8 fl (7.4-10.4); Monocytes # 0.4 K/mm3 (0.1-1.0); Monocytes % 8.5 % (1.7-9.3); Neutrophils # 3.2 K/mm3 (1.8-7.8); Platelet Count 159 K/mm3 (142-424); Red Cell Distribution Width 13.3 % (11.5-17.5); White Blood Count 4.4 K/mm3 (4.8-10.8)
[2020-11-30 08:13] LABS: Chloride 108 mmol/L (98-107); Sodium 138 mmol/L (136-145)
[2020-11-30 08:15] LABS: Blood Urea Nitrogen 18 mg/dl (7-17); Creatinine Clearance Estimated 91 mL/min (50-200); Estimated Glomerular Filt Rate 86 ml/min (>60); GFR (African American) 104 ML/MIN (>60)
[2020-11-30 08:16] LABS: Alanine Aminotransferase 29 U/L (12-78); Albumin Level 2.9 g/dl (3.5-5.0); Albumin/Globulin Ratio 1.1 (1.1-1.8); Alkaline Phosphatase 35 U/L (38-126); Aspartate Amino Transferase 56 U/L (14-36); Bilirubin,Total 0.6 mg/dl (0.2-1.3); Calcium 7.7 mg/dl (8.4-10.2); Carbon Dioxide 23 mmol/L (22.0-30.0); Globulin 2.7 g/dL (1.3-3.2); Glucose 113 mg/dl (74-100); Total Protein,Serum 5.6 g/dl (6.3-8.2)
--- NOTE | 2020-11-30 08:44 | HMH.ACPN2 ---
Internal Medicine - PN: Subj *Date: 11/30/20 *Time: 08:44 Interval history: Patient is happy and is counting on going home today. She denies shortness of breath. She states her cough resolved yesterday. She denies chest pain. She is eating little and has no appetite. She has minimal nausea. She is voiding QS. Exam Vital signs and Labs for Last 24 Hours: Temp Pulse Resp BP Pulse Ox 98.2 F 69 17 163/83 H 95 11/30/20 08:00 11/30/20 08:00 11/30/20 08:00 11/30/20 08:00 11/30/20 08:00 Laboratory Results - last 24 hr 11/29/20 07:50: Hgb 14.1 D 11/29/20 07:50: Carbon Dioxide 22 D, Anion Gap 11.9, BUN 17, Creatinine 0.70 D, Estimated Creat Clear 93, Estimated GFR 86, Est GFR ( Amer) 104 D, Glucose 118 H, Calcium 7.7 L 11/29/20 15:00: Chlamy pneumoniae PCR Not detected, Adenovirus (PCR) Not detected, B. pertussis DNA (PCR) Not detected, Coronavirus OC43 (PCR) Not detected, Coronavirus HKU1 (PCR) Not detected, Coronavirus 229E (PCR) Not detected, Coronavirus NL63 (PCR) Not detected, Human Metapneumovir PCR Not detected, Influenza A (H1) PCR Not detected, Influ A (H1N1/09) PCR Not detected, Influenza A (H3) PCR Not detected, Influenza Type A (PCR) Not detected, Influenza Type B (PCR) Not detected, M. pneumoniae (PCR) Not detected, Parainfluenza 1 (PCR) Not detected, Parainfluenza 2 (PCR) Not detected, Parainfluenza 3 (PCR) Not detected, Parainfluenza 4 (PCR) Not detected, RSV (PCR) Not detected, Entero/Rhino (PCR) Not detected 11/30/20 05:15: WBC 4.4 L D, RBC 4.70, Hgb 13.7, Hct 40.9, MCV 87.0, MCH 29.0, MCHC 33.4, RDW 13.3, Plt Count 159 D, MPV 10.8 H, Neut % (Auto) 72.0, Lymph % (Auto) 18.9, [place]cd[place] % (Auto) 8.5, Eos % (Auto) 0.0 L, Baso % (Auto) 0.5, Neut # (Auto) 3.2, Lymph # (Auto) 0.8, [place]cd[place] # (Auto) 0.4, Eos # (Auto) 0.0, Baso # (Auto) 0.0 11/30/20 05:15: Sodium 138, Potassium 4.0, Chloride 108 H, Carbon Dioxide 23, Anion Gap 11.0, BUN 18 H, Creatinine 0.70, Estimated Creat Clear 91, Estimated GFR 86, Est GFR ( Amer) 104, Glucose 113 H, Calcium 7.7 L, Total Bilirubin 0.6, AST 56 H, ALT 29, Alkaline Phosphatase 35 L, Total Protein 5.6 L, Albumin 2.9 L, Globulin 2.7, Albumin/Globulin Ratio 1.1 I & O for Last 24 hours: Intake & Output 11/27/20 11/28/20 11/29/20 11/30/20 11:59 11:59 11:59 11:59 Intake Total 1783 / 1783 2247 / 2247 Output Total 0 / 0 Balance 1783 / 1783 2246 / 2247 Weight 150 lb 149 lb 145 lb 5 oz - Constitutional no acute distress Comments: Awake and happy. No dyspnea noted. - *Routine Respiratory Exam Present: crackles (Few bibasilar) - *Routine Cardiovascular Exam Present: RRR - *Routine Abdominal Exam Present: soft, normoactive bowel sounds. Absent: tenderness - *Routine Extremities Exam Absent: edema, calf tenderness - *Routine Neurological Exam Present: alert, oriented X3 Assessment and Plan (1) Acute respiratory failure with hypoxia Status: Acute Category: Medical Code(s): J96.01 - Acute respiratory failure with hypoxia (2) Pneumonia due to COVID-19 virus Status: Acute Category: Medical Code(s): U07.1 - COVID-19; J12.82 - Pneumonia due to coronavirus disease 2019 (3) Anxiety Status: Chronic Category: Medical Code(s): F41.9 - Anxiety disorder, unspecified (4) GERD (gastroesophageal reflux disease) Status: Chronic Qualifiers: Esophagitis presence: esophagitis presence not specified Qualified Code(s): K21.9 - Gastro-esophageal reflux disease without esophagitis Category: Medical Code(s): K21.9 - Gastro-esophageal reflux disease without esophagitis (5) Hyperlipidemia Status: Chronic Category: Medical Code(s): E78.5 - Hyperlipidemia, unspecified (6) Hypertension Status: Chronic Qualifiers: Hypertension type: essential hypertension Qualified Code(s): I10 - Essential (primary) hypertension Category: Medical Code(s): I10 - Essential (primary) hypertension - Assessment and plan all Dx Ass
--- NOTE | 2020-11-30 09:07 | HMH.PULMPN ---
Internal Medicine - PN: Subj *Date: 11/30/20 *Time: 10:18 Interval history: No acute respiratory vents overnight. Patient continued to improve, this morning on room air saturating 90 to 91%. Admits significant improvement in her symptoms. Exam - Constitutional Constitutional:: Present: no acute distress, comfortable - HENMT Exam HENMT: Present: normocephalic, atraumatic - Eye Exam Eyes:: Present: normal appearance both eyes and related structures - Neck Exam Neck:: Present: normal visual inspection - Respiratory Exam Respiratory:: Present: able to speak in complete sentences, no respiratory distress, crackles. Absent: wheezing Comments: Decreased breath sounds in right upper lung lindsey - Cardiovascular Exam Cardiac:: Present: S1, S2 - GI Exam GI:: Present: soft - Skin Exam Skin: Present: warm, no rash, dry - Neurological Exam Neurological: Present: alert, awake - Extremities Exam Extremities: Present: no cyanosis, no clubbing, no edema Assessment and Plan (1) Acute respiratory failure with hypoxia Status: Acute Category: Medical Code(s): J96.01 - Acute respiratory failure with hypoxia (2) Pneumonia due to COVID-19 virus Status: Acute Category: Medical Code(s): U07.1 - COVID-19; J12.82 - Pneumonia due to coronavirus disease 2019 (3) Anxiety Status: Chronic Category: Medical Code(s): F41.9 - Anxiety disorder, unspecified (4) GERD (gastroesophageal reflux disease) Status: Chronic Qualifiers: Esophagitis presence: esophagitis presence not specified Qualified Code(s): K21.9 - Gastro-esophageal reflux disease without esophagitis Category: Medical Code(s): K21.9 - Gastro-esophageal reflux disease without esophagitis (5) Hyperlipidemia Status: Chronic Category: Medical Code(s): E78.5 - Hyperlipidemia, unspecified (6) Hypertension Status: Chronic Qualifiers: Hypertension type: essential hypertension Category: Medical Code(s): I10 - Essential (primary) hypertension - Assessment and plan all Dx Assessment and Plan for all problems:: #COVID-19 pneumonia: 60-year-old unvaccinated female recent diagnosis of COVID-19 pneumonia from 11/22, symptoms for the last 2 weeks present with worsening respiratory failure. Chest x-ray admission bilateral lower lobe pulmonary infiltrates. Patient was initiated on 1 L nasal cannula admission that he was eventually weaned to room air, this morning saturating 90 to 91% on room air. CRP elevated at 22, D-dimer 8.51. COVID-19 IgM and IgG both negative Plan: -Continue remdesivir and dexamethasone, can be discontinued on discharge. -Continue levofloxacin daily for a total of 5 days -Combivent every 6 hours as needed - F/u Sputum culture -Chemical DVT prophylaxis while inpatient Thank you for involving pulmonary in this patient care. We will follow the patient in pulmonary clinic in 4 to 5 weeks
[2020-11-30 09:20] VITALS: RESP 18; O2SAT 94
[2020-11-30 11:52] VITALS: BP 120/80; PULSE 76; RESP 17; TEMP 36.8; O2SAT 91
--- NOTE | 2020-11-30 13:03 | PC.NURSE ---
Dr. Sprague rounded at this time. Updated on patients lab work
--- NOTE | 2020-11-30 13:38 | PC.NURSE ---
1325- pt requested to leave AMA. After updatingpt on POC and possible discharge later this afternoon, pt still insisted on leaving AMA. 1330- LEft message w/ MD Sprague regarding pt leaving AMA. 1335- Pt signed AMA papers, pt currently waiting for to arrive then staff will escort pt out to vehicle
--- NOTE | 2020-12-02 12:21 | HMH.DCSUM ---
General - General Admission date:: 11/28/20 Discharge date: 11/30/20 HPI HPI: Ms. Eric is a 60-year-old female with a history of hypothyroidism, anxiety, congestive heart failure, GERD, hyperlipidemia, hypertension, and migraine headaches who presented to [facility] emergency room for evaluation after not feeling well for about 2 weeks. She described progressive shortness of breath with some productive cough and fever. She stated she had not been eating or drinking very well. She did see her family physician in [facility] last week and when she discussed with him her worsening symptoms he directed her to the emergency room. She did not have Covid immunizations as yet. Test Data from the ER: 11/28/20 11:14: Specimen Source Left radial, O2 % 2l nc, ABG pH 7.46 H, ABG pCO2 32.8 L, ABG pO2 63.8 L, ABG HCO3 23.0, ABG Total CO2 24.0, ABG O2 Saturation 94, ABG Base Excess -0.7, Abhinav Test Acceptable 11/28/20 11:50: WBC 3.6 L, RBC 5.47 H, Hgb 15.9, Hct 47.6 H, MCV 87.0, MCH 29.1, MCHC 33.5, RDW 13.4, Plt Count 129 L, MPV 8.6, Neut % (Auto) 74.2, Lymph % (Auto) 18.2, Mcnairy % (Auto) 5.4, Eos % (Auto) 0.5, Baso % (Auto) 1.6, Neut # (Auto) 2.7, Lymph # (Auto) 0.7, Mcnairy # (Auto) 0.2, Eos # (Auto) 0.0, Baso # (Auto) 0.1 11/28/20 11:50: Sodium 133 L, Potassium 3.9, Chloride 95 L, Carbon Dioxide 29, Anion Gap 12.9, BUN 20 H, Creatinine 1.20 H, Estimated Creat Clear 55, Estimated GFR 46 L, Est GFR ( Amer) 56 L, Glucose 105 H, Calcium 8.2 L, Total Bilirubin 0.7, AST 73 H, ALT 38, Alkaline Phosphatase 56, Troponin I < 0.01, NT-Pro-B Natriuret Pep 113, Total Protein 7.1, Albumin 4.0, Globulin 3.1, Albumin/Globulin Ratio 1.3 Patient received acetaminophen 1000 mg once , dexamethasone 10 mg IV, and a liter of sodium chloride IV. CXR revealed the following: FINDINGS: The cardiomediastinal silhouette and pulmonary vascularity are within normal limits. The increased density noted in the lung bases on both sides consistent with bilateral lower lobe pneumonia slightly greater on the right compared to the left. Upper lobes are clear. No acute bony abnormalities. IMPRESSION: Bibasilar pneumonia At this time of exam after admission patient was awakened for assessment. She stated she was still somewhat short of breath with O2 sats being in the 90s. She described diffuse body aches and epigastric discomfort. Patient was seen by Dr. Flor, client executive, with the following notation: Assessment and Plan for all problems:: #COVID-19 pneumonia: 60-year-old unvaccinated female recent diagnosis of COVID-19 pneumonia from 11/22, symptoms for the last 2 weeks present with worsening respiratory failure. Chest x-ray admission bilateral lower lobe pulmonary infiltrates. Chest x-ray bilateral lower lobe coarse breath sounds along with decreased breath sounds in the right upper lung lindsey. Patient NC O2 weaned to 1 L nasal cannula with saturations maintained at 92 to 95%. Plan: -Initiate remdesivir and dexamethasone -Initiate levofloxacin daily -Follow with COVID-19 serology, nasal MRSA PCR, CRP, D-dimer and LDH -Combivent every 6 hours as needed -Return culture -Chemical DVT prophylaxis Hospital Course Hospital Course: Patient was followed by Dr. Flor, client executive, who initiated remdesivir and dexamethasone. He also started levofloxacin daily. Initially patient did not feel much better but made gradual improvement. She was weaned from her oxygen. By 11/30 she stated that she felt well and was counting on going home. She stated her cough had resolved and she denied shortness of breath. Her appetite had not fully returned but she was eating somewhat better. The p.m. of 11/30 patient insisted on leaving without being discharge. She signed AMA papers and was discharged home. At the time of discharge she was stable and satisfactory. Plan was for her to follow-up with her family physician. Objective Vital signs: Temp Pulse Resp BP P
== END 2020-11-30 13:55 | disposition left against medical advice (07) | DRG 177 ==
LOC: ER 14:02 → ICU 14:19
PROVIDERS: Internal Medicine Pulmonary Disease; Admitting Provider Family Medicine; Emergency Provider Emergency Medicine; PCP Family Medicine; Visit Provider Family Medicine
DX: U07.1 COVID-19 (principal); J96.01 Acute respiratory failure with hypoxia; J12.82 Pneumonia due to coronavirus disease 2019; E03.9 Hypothyroidism, unspecified; I11.0 Hypertensive heart disease with heart failure; K21.9 Gastro-esophageal reflux disease without esophagitis; G43.909 Migraine, unspecified, not intractable, without status migrainosus; Z79.899 Other long term (current) drug therapy; I50.9 Heart failure, unspecified; E78.5 Hyperlipidemia, unspecified
CPT/HCPCS: 36415; 71045; 80048; 80053; 81001; 82803; 83605; 83615; 83880; 84484; 85025; 85378; 86140; 86328; 87081; 87486; 87581; 87633; 87798; 94761; 96365; 96375; 99284; J1956; U0003

== ENCOUNTER 2021-09-29 13:45 | Emergency (ER) | payer OTHER, SELFPAY ==
[2021-09-29 13:46] VITALS: BP 194/94; PULSE 74; RESP 16; TEMP 36.8; O2SAT 98; BMI 24.0
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
--- NOTE | 2021-09-29 14:30 | PC.NURSE ---
Pt return from CT, given tetanus shot at this time. No other needs
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
--- NOTE | 2021-09-29 15:00 | PC.NURSE ---
ESTRELLITA CEDILLO at
[2021-09-29 15:45] VITALS: BP 142/70; PULSE 89; RESP 16; TEMP 36.8; O2SAT 98
== END 2021-09-29 15:47 | disposition home or self-care (01) ==
PROVIDERS: Emergency Provider Emergency Medicine; PCP Family Medicine
DX: S01.01XA Laceration without foreign body of scalp, initial encounter (principal); S06.0X0A Concussion without loss of consciousness, initial encounter; I11.0 Hypertensive heart disease with heart failure; I50.9 Heart failure, unspecified; E78.5 Hyperlipidemia, unspecified; E03.9 Hypothyroidism, unspecified; G43.909 Migraine, unspecified, not intractable, without status migrainosus; F41.9 Anxiety disorder, unspecified; Z79.899 Other long term (current) drug therapy; Z88.2 Allergy status to sulfonamides; Z88.8 Allergy status to other drugs, medicaments and biological substances; Z82.49 Family history of ischemic heart disease and other diseases of the circulatory system; W20.8XXA Other cause of strike by thrown, projected or falling object, initial encounter
CPT/HCPCS: 12004; 70450; 72125; 90471; 90715; 99285

== ENCOUNTER 2021-10-06 08:54 | Emergency (ER) | payer OTHER, SELFPAY ==
[2021-10-06 09:00] VITALS: BP 132/86; PULSE 86; RESP 19; TEMP 36.8; O2SAT 100; BMI 25.2
[2021-10-06 09:15] VITALS: BP 132/86; PULSE 86; RESP 19; TEMP 36.8; O2SAT 100
== END 2021-10-06 09:20 | disposition home or self-care (01) ==
LOC: UTC 08:56
PROVIDERS: Emergency Provider Nurse Practitioner; PCP Family Medicine
DX: Z48.02 Encounter for removal of sutures (principal)
CPT/HCPCS: 99211; G0463

== ENCOUNTER → 2022-04-18 15:25 | Outpatient (CLI) | payer OTHER, SELFPAY ==
--- NOTE | 2022-04-18 15:28 | MM_ITS ---
PROCEDURE INFORMATION: Exam: Bilateral Screening 3D Mammography Exam date and time: 04/18/2022 3:26 PM Age: 61 years old Clinical indication: Screening mammogram TECHNIQUE: Imaging protocol: Bilateral Screening tomosynthesis and 2D mammography including computer-aided detection (CAD) when performed. COMPARISON: No relevant prior studies available. FINDINGS: MAMMOGRAPHY: Breast composition: The breast is heterogeneously dense, which may obscure small masses. Mass: None. Architectural distortion: No new or suspicious architectural distortion. Calcifications: Calcifications within the 12 o'clock left middle 1/3 should be assessed with spot MAGNIFICATION views in CC/ML projection for morphologic characterization. Asymmetric density: No new or suspicious asymmetric density is present Skin thickening: None. Axillary adenopathy: None. IMPRESSION: Calcifications within the 12 o'clock left middle 1/3 should be assessed with spot MAGNIFICATION views in CC/ML projection for morphologic characterization. ASSESSMENT: BI-RADS category 0: Incomplete-need additional imaging evaluation
== END ==
PROVIDERS: PCP Family Medicine; Visit Provider Family Medicine
DX: Z12.31 Encounter for screening mammogram for malignant neoplasm of breast (principal)
CPT/HCPCS: 77063; 77067

== ENCOUNTER 2022-06-13 12:14 | Emergency (ER) | payer OTHER, SELFPAY ==
[2022-06-13 12:45] VITALS: BP 186/84; PULSE 59; RESP 20; TEMP 36.7; O2SAT 97; BMI 27.4
--- NOTE | 2022-06-13 12:55 | EXP.UTC ---
Discharge Plan Disposition Patient Disposition: Home, Self-Care Condition: Good Prescriptions Prescriptions: New methylprednisolone 4 mg Tablets,Dose Pack 4 mg PO DIRECTED Qty: 21 0RF amoxicillin-pot clavulanate 875-125 mg Tablet 1 tab PO Q12H Qty: 20 0RF ondansetron 4 mg Tablet,Disintegrating 4 mg PO Q8H PRN (Reason: Nausea) Qty: 20 0RF No Action diclofenac sodium [Voltaren] 1 % gel 4 g TOPICAL QID PRN (Reason: pain) Qty: 30 2RF Rx Instructions: apply to single knee, ankle, foot; gently massage into area; for foot includes sole/toes/top of foot metoprolol succinate 25 mg tablet extended release 24 hr 25 mg PO DAILY lisinopril 10 mg tablet 20 mg PO DAILY hydroxyzine HCl 25 mg tablet 25 mg PO QIDP PRN (Reason: Anxiety) omeprazole 20 mg capsule,delayed release(DR/EC) 20 mg PO DAILY diphenhydramine HCl 25 mg capsule 25 mg PO Q8H PRN (Reason: headache) Qty: 30 0RF Rx Instructions: otc naproxen 250 mg tablet 250 mg PO BID PRN (Reason: headache) 30 Days Qty: 60 5RF Rx Instructions: Take 1 tablet by mouth two times daily as needed for migraine. Can be taken with benadryl and reglan cocktail. metoclopramide HCl 10 mg tablet 10 mg PO DAILY Rx Instructions: Take with naproxen, benadryl for headache cocktail at onset of headache hydrochlorothiazide 12.5 mg tablet 12.5 mg PO DAILY albuterol sulfate [ProAir HFA] 90 mcg/actuation HFA aerosol inhaler 2 puff inhalation Q6H PRN erenumab-aooe 140 mg/mL auto-injector 140 mg SQ QMONTH Qty: 1 11RF Ubrelvy 100 mg tablet 100 mg PO ONCE PRN (Reason: migraine headache ) Qty: 16 5RF Rx Instructions: Take 1 tablet (100 mg) by mouth at onset of symptoms. May repeat after 2 hours if symptoms persist. Max dose 200 mg or 2 tablets in 24 hours. topiramate 100 mg tablet 150 mg PO HS Qty: 45 11RF Referrals Follow up/Referrals: Shellie Denson [Primary Care Provider] - See instructions Activity Restrictions/Add. Instructions Additional Instructions/Restrictions: Drink plenty of fluids. Take tylenol or ibuprofen for pain or fever. Take the medications as directed. Follow up with your regular doctor. GO TO THE ER FOR ANY WORSENING SYMPTOMS Clinical Impressions Clinical Impression: Otitis media Stand Alone Forms Stand Alone Forms: Work/School Release Instructions Patient Instructions: Middle Ear Infection Discharge ED Provider: Matthias Velasquez [facility] General Stated complaint: ear pain Mode of Arrival: Ambulatory Source of Information: Patient Limitations: No Limitations Time Seen by Provider: 06/13/22 12:55 Description of Symptoms (Recalled from Triage Doc. by RN): bilateral ear ache left is worse then right HEENT Symptoms (Recalled from RN notes): Yes Resp Symptoms (Recalled from RN notes): No Skin Symptoms (Recalled from RN notes): No MS Symptoms (Recalled from RN notes): No Functional Status (Recalled from RN notes): n/a History of Present Illness Provider Complaint: She states that she has had left ear pain for the past 2 weeks. Related Data Home Medications Medication Instructions Recorded Confirmed metoprolol succinate 25 mg 25 mg PO DAILY High blood pressure 01/08/19 04/02/22 tablet,extended release 24 hr hydroxyzine HCl 25 mg tablet 25 mg PO QIDP PRN Anxiety 05/13/19 04/02/22 omeprazole 20 mg capsule,delayed 20 mg PO DAILY . 12/31/19 04/02/22 release albuterol sulfate 90 mcg/actuation 2 puff inhalation Q6H PRN 04/02/22 04/02/22 aerosol inhaler (ProAir HFA) hydrochlorothiazide 12.5 mg tablet 12.5 mg PO DAILY 04/02/22 04/02/22 lisinopril 10 mg tablet 20 mg PO DAILY High blood pressure 04/02/22 04/02/22 metoclopramide HCl 10 mg tablet 10 mg PO DAILY headache 04/02/22 Previous Rx's Medication Instructions Recorded diclofenac sodium 1 % topical gel 4 g topical QID PRN pain #30 grams 04/23/19 (Voltaren)
[2022-06-13 13:14] VITALS: BP 186/84; PULSE 59; RESP 20; TEMP 36.7; O2SAT 97
== END 2022-06-13 13:14 | disposition home or self-care (01) ==
PROVIDERS: Emergency Provider Nurse Practitioner Family; PCP Family Medicine
DX: H66.90 Otitis media, unspecified, unspecified ear (principal); H92.03 Otalgia, bilateral
CPT/HCPCS: 99212; 99213; G0463

== ENCOUNTER → 2022-09-18 12:57 | Outpatient (CLI) | payer OTHER, SELFPAY ==
--- NOTE | 2022-09-18 13:07 | MM_ITS ---
PROCEDURE INFORMATION: Exam: US Left Breast, Complete MG Left Diagnostic Breast Tomosynthesis Exam date and time: 09/18/2022 1:07 PM Age: 62 years old Clinical indication: Patient recalled on the basis of a screening mammogram for further evaluation; Left breast; calcifications TECHNIQUE: Imaging protocol: Complete ultrasound of all four quadrants of the left breast and the retroareolar regions, including ultrasound of the axilla when performed. Left Diagnostic tomosynthesis and 2D mammography including computer-aided detection (CAD) when performed. Unilateral or bilateral exam. COMPARISON: MG MM DIG SCREENING MAMM BI W/CAD 04/18/2022 3:26 PM FINDINGS: MAMMOGRAPHY: Digital diagnostic magnification views of the middle third of the left 12 o'clock axis demonstrate loosely grouped predominantly round and oval calcifications. They are uniform in size and shape with slight variability in density. There is no associated soft tissue mass. The calcifications span 1.9 cm of breast tissue and are probably benign in etiology. ULTRASOUND: Sonographic images of the left breast including the retroareolar region, all 4 quadrants and the axilla do not demonstrate any solid or cystic masses. No architectural distortion or acoustical shadowing. No skin thickening or axillary adenopathy. IMPRESSION: Probably benign left breast calcifications. A six-month follow-up diagnostic left mammogram with magnification views are recommended to ensure stability over time ASSESSMENT: BI-RADS Category 3: Probably benign
== END ==
PROVIDERS: PCP Family Medicine; Visit Provider Family Medicine
DX: R92.8 Other abnormal and inconclusive findings on diagnostic imaging of breast (principal)
CPT/HCPCS: 76641; 77061; 77065; G0279

== ENCOUNTER → 2023-02-05 13:09 | Outpatient (CLI) | payer OTHER, SELFPAY ==
--- NOTE | 2023-02-05 13:46 | PC.NURSE ---
PFT completed without incident. Albuterol 0.083% given via HHN, per written protocol, Pt tolerated tx well.
--- NOTE | 2023-02-05 14:01 | XR_ITS ---
FINAL REPORT CLINICAL HISTORY: HYPOXEMIA FINDINGS: Two views of the chest were obtained. The heart size and pulmonary vascularity are within normal limits. The mediastinum is normal. No acute pulmonary abnormality is identified. There is no pneumothorax. The bony thorax is intact. IMPRESSION: No active cardiopulmonary disease. Reviewed, Interpreted and Dictated by Smith Villegas III, MD Transcribed by Phoenix Gannon Authenticated and [facility]
== END ==
PROVIDERS: PCP Family Medicine; Visit Provider Specialist
DX: G47.34 Idiopathic sleep related nonobstructive alveolar hypoventilation (principal); G47.33 Obstructive sleep apnea (adult) (pediatric)
CPT/HCPCS: 71046; 94060; 94726; 94729

== ENCOUNTER 2023-05-16 21:30 | Outpatient (CLI) | payer OTHER, SELFPAY | END 2023-05-16 23:59 | LOC: LAB.DROPOF 21:30 | PROVIDERS: PCP Student in an Organized Health Care Education/Training Program; Visit Provider Student in an Organized Health Care Education/Training Program | DX: R07.0 Pain in throat (principal) | CPT/HCPCS: 87070 ==

== ENCOUNTER 2025-01-26 07:53 | Outpatient (CLI) | payer OTHER, SELFPAY ==
--- NOTE | 2025-01-26 07:55 | MM_ITS ---
PROCEDURE INFORMATION: Exam: MG Bilateral Screening 3D Mammography Exam date and time: 01/26/2025 8:03 AM Age: 64 years old Clinical indication: Screening examination TECHNIQUE: Imaging protocol: Bilateral Screening tomosynthesis and 2D mammography including computer-aided detection (CAD) when performed. COMPARISON: 1. MG MM DIG MAMM DX UNILAT LT CAD 09/18/2022 1:07 PM 2. MG MM DIG SCREENING MAMM BI W/CAD 04/18/2022 3:26 PM FINDINGS: MAMMOGRAPHY: Breast composition: There are scattered areas of fibroglandular density. Mass: None. Architectural distortion: None. Calcifications: No suspicious calcifications. Asymmetric density: None. Skin thickening: None. Axillary adenopathy: None. IMPRESSION: No mammographic evidence of malignancy. Annual screening is recommended unless otherwise clinically indicated. ASSESSMENT: BI-RADS Category 1: Negative.
--- OUTSIDE RECORDS SUMMARY | 2025-01-26 07:56 | XMS_ITS | Data Portability ---
[facility] Organization [facility] Address [address] [place] [id number] Assessment No assessment recorded. Plan of Treatment Reminders Order Date Submit Date Provider Last Modified By Organization Details Last Modified Time Details Appointments None recorded. Lab None recorded. Referral None recorded. Procedures None recorded. Surgeries None recorded. Imaging None recorded. Medication Orders ofloxacin 0.3 % eye drops 2022 023 ROSANGELA Not available 10:40:15 Patient TargetsNo targets recorded. Patient Instructions Encounter Date Encounter Id Patient Instructions Last Modified By Organization Details Last Modified Time 06/12/2022 [id number] [email or web address]: care instructions [email or web address] Not available 06/12/2022 10:39:59 Reason for Referral None Reported. Medical Equipment None Reported. Allergies Allergen ID Allergen Name Allergen Category Reaction Reaction Severity Criticality Documentation Date Start Date Code Code System Note Provider Name and Address Organization Details Recorded Time 65256 latex environme nt,medica tion Not available Not available Not available 06/12/2022 43360 91 RxNorm Elsa davila [facility] [place] 3 10:32:18 06855 Nurtec medicatio n Not available Not available Not available 06/12/2022 99114 14 [facility] [place] 3 10:32:34 47423 Imitrex medicatio n Not available Not available Not available 06/12/2022 41094 3 RxNorm Elsa davila [facility] [place] 3 10:32:41 71540 tramadol medicatio n Not available Not available Not available 06/12/2022 10513 RxNorm Elsa Abbott [facility], [place] - [facility] [place] 3 10:33:21 Medications Name Sig Start Date Stop Date Status Note LastModified by Organization Details LastModified Time celecoxib 200 mg capsule active Not Available Not Available Not Available potassium chloride ER 10 mEq capsule,exte nded release active Not Available Not Available Not Available pravastatin 40 mg tablet active Not Available Not Available Not Available ofloxacin 0.3 % eye drops INSTILL 1 DROP INTO AFFECTED EYE(S) BY OPHTHALMIC ROUTE 4 TIMES PER DAY active Not Available Not Available No t Available tizanidine 4 mg tablet active Not Available Not Available No t Available lisinopril 20 mg tablet active Not Available Not Available Not Available tramadol 50 mg tablet active Not Available Not Available No t Available propranolol 40 mg tablet active Not Available Not Available Not Available levothyroxin e 50 mcg tablet active Not Available Not Available Not Available lisinopril 10 mg tablet active Not Available Not Available Not Available omeprazole 20 mg capsule,orlando yed release active Not Available Not Available Not Available hydroxyzine HCl 25 mg tablet active Not Available Not Available Not Available hydrochlorot hiazide 25 mg tablet active Not Available Not Available No t Available metoprolol succinate ER 25 mg tablet,exten ded release 24 hr active Not Available Not Available Not Available methylpredni solone 4 mg tablets in a dose pack TAKE BY MOUTH DIRECTED ON INSIDE OF PACKAGE FOR HEADACHE active Not Available Not Available No t Available topiramate 100 mg tablet TAKE 1 & 1/2 (ONE & ONE-HALF) TABLETS BY MOUTH AT BEDTIME active Not Available Not Available No t Available pregabalin 150 mg capsule active Not Available Not Available Not Available ProAir HFA 90 mcg/actuatio n aerosol inhaler active Not Available Not Available Not Available hydrochlorot hiazide 12.5 mg tablet active Not Available Not Available No t Available Aimovig Autoinjector 140 mg/mL subcutaneous auto-injecto r INJECT 1 SYRINGE SUBCUTANEOU SLY ONCE EVERY MONTH FOR MIGRAINES active Not Available Not Available No t Available Ubrelvy 100 mg tablet TAKE 1 TABLET BY MOUTH AT ONSET OF HEADACHE, MAY REPEAT AFTER 2 HOURS IF SYMPTOMS PERSIST. MAX DOSE OF 200MG OR 2 TABLETS IN 24 HOURS active Not Available Not Available No t Available Vitals Date Recorded Body weight Body temperature Provider N tim and Address Organization Details Last Updated DateTime 06/12/2022 78694.7 g 97.3 [degF] Elsa Abbott [facility] & [place] 06/12/2022 10:32:12 Social History None recorded. Functional Status None recorded. Mental Status None recorded. Family History Nothing Reported. Medical History No medical history recorded. Gynecological HistoryNo gynecological history recorded. Obstetrics History GPAL:G 0 P 0 0 0 0 Past Encounters Encounter ID Performer Location Encounter Start Date Encounter Closed Date Diagnosis/Indication Diagnosis SNOMED-CT Code Diagnosis ICD10 Code Diagnosis IMO Codes Diagnosis Note [id number] Lala Parker DNP, GENERAL MAGISTRATE-C, [employer] [facility] [place] [address] [facility] [address] [place] [address] 06/12/2022 10:29:45 06/12/2022 10:41:13 Bacterial conjunctivitis 571343156 H10.9 Health Concerns Section Related Observation LastModified by Organization Detai ls LastModified Time None Recorded Concern Status LastModified by Organization Details LastModified Time None Recorded Advance Directives Directive None Recorded Payers Insurance Date Sequence Insurance Name Policy Number Policy Dobbins Covered Member ID Dobbins Member ID Guarantor Name 11/02/2023 1 [employer] Kalani Pack [id number] Kalani Pack 10/11/2024 1 [place] Kalani Pack [id number] Kalani Pack Notes Date Note Type Note Provider Name and Address Organization Details Recorded Time 06/12/2022 text/html Per patient she is concerned she may have pink eye. Patient says she has grandbabies. Patient says her eye is itchy. Patient says her eye is irritated. Patient has light sensitivity. Patient says as she drove down her eye was getting worse. Patient has had drainage from eye. Lala Parker DNP, GENERAL [employer]ISTRATE-C, [employer]IVER [address] [facility], [place], [id number], [facility] & [place] 06/12/2022 10:40:38 OBGyn Episode No OBEpisode recorded.
--- OUTSIDE RECORDS SUMMARY | 2025-01-26 07:56 | XMS_ITS | Data Portability ---
Author Organization [facility] Address [address] [place] [address] Care Team Providers Care Pharmacy Benefits Coordinator Name Role Phone MARTY SOLIS Referring Provider Assessment Encounter Date Assessment Date Assessment LastModified by Organization Details LastModified Time 06/25/2023 06/25/2023 Mrs. Jeaneth vazquez suki for a wellness check up. She will be scheduled for a pap smear in the near future. She has a long history of migraine headaches and has been started on the new monthly injectable, Aimovig, and it has really helped significantly. She is followed by neurology in [place]. Her blood pressure is elevated and she states she is compliant with her medications. There is a strong family history of hypertension and stroke in her mother and she does not want that issue. BP improved upon rechecking in the office. We will add spironolactone and follow up closely. If we cannot get pressures under control we will plan a cardiology referral for further evaluation. She does have a normal renal function and slightly low potassium so the spironolactone should help that as well. She does find she needs her rescue inhaler every morning and a pulmonary function shows a moderately severe restriction. We recommend she begin a maintenance inhaler in the mornings instead and also in the evenings until stabilized. Labs are reviewed and discussed. Lipids are borderline elevated. Ten year CV risk is 8.89%. Medications are reviewed. She is over due a mammogram, colon cancer screening and cervical cancer screening. We will follow up on blood pressure and schedule a pap smear this summer. [email or web address] Not available 06/27/2023 16:45:06 09/24/2023 09/24/2023 Mrs. Jeaneth vazquez ts for a pap smear that is completed. She could not tolerate either the hydrochlorothiazide nor the spironolactone. She had nausea and vomiting with both. Blood pressure is not controlled. We will add a trial of amlodipine to the metoprolol and lisinopril. We still recommend a colonoscopy. We continue to encourage healthy lifestyle choices and reduced sodium diet to help with the blood pressure. Not available 09/25/2023 22:07:20 12/17/2023 12/17/2023 Mrs. Eric follow s up on her blood pressure and it is better. We did review the medications with her and print them off. We will increase the lisinopril to 40 mg daily. She continues to follow a healthy lifestyle which we encourage. We will follow up at her wellness visit in June or sooner if needed. [email or web address] Not available 12/17/2023 13:05:38 07/09/2024 07/09/2024 Mrs. Jeaneth vazquez ts for a wellness check up. She had a normal pap smear last year but is still overdue a mammogram. She has a long history of migraine headaches and has been started on the new monthly injectable, Aimovig, and it has really helped significantly. She is followed by neurology in [place]. Her blood pressure is well controlled and she states she is compliant with her medications. There is a strong family history of hypertension and stroke in her mother and she does not want that issue. She stays physically active with horses. During a recent trail ride she received significant scrapes over the right arm especially that are superficially inflamed. We will recommend topical bactroban. She does find she needs her rescue inhaler every morning and her pulmonary function last year showed a moderately severe restriction. She has the maintenance inhaler, Symbicort and we recommend she start using it daily now since she is needing the rescue inhaler more lately. Labs are reviewed and discussed. Lipids are borderline elevated. She also has developed borderline pre-diabetes and she will cut back the sugary beverages. She had a very borderline TSH elevation so we can check a Thyroxine level. She still has a cologuard box at home and we encourage her to complete the test. Vaccines are reviewed and she should obtain a tetanus update at her pharmacy as well as the Prevnar 20 vaccine. Ten year CV risk is 7.79%. Medications are reviewed. She is overdue a mammogram. Not available 07/09/2024 21:40:17 08/10/2024 08/10/2024 Kalani has had a 2 week cough and with her underlying asthma will be treated with steroids and to cover for atypicals. Not available 08/10/2024 16:11:34 Plan of Treatment Reminders Order Date Submit Date Provider Last Modified By Organization Details Last Modified Time Details Appointments None recorded. Lab T4, free, serum 2024 025 [facility], [address], [place], [address], 5 08:22:57 pap, LB 2023 024 [facility], [address], [place], [address], 4 15:31:24 Referral cardiologis t referral 2023 024 [email or web address] 12 Not available 4 09:48:39 Procedures colonoscopy screening (PROC) 2023 024 [place] [address] Sterling Coe MD, [address], [facility] [address], [place], [address], 4 15:05:51 Surgeries None recorded. Imaging MAMMO, screening, digital, bilateral [address] (Scheduling), [address], [place], [address], 5 16:00:30 MAMMO, screening, digital, bilateral [address] (Scheduling), [address], [place], [address], 4 14:56:18 Medication Orders promethazin e-DM 6.25 mg-15 mg/5 mL oral syrup 04/28/ 2025 04/28/2 025 [facility], [address] [place] [address], [place], [id number], 5 14:19:45 azithromyci n 250 mg tablet 2024 025 [facility], [address] [place] [address], [place], [id number], 5 16:46:09 dexamethaso ne sodium phosphate 4 mg/mL injection solution [email or web address] [place] [address] Pharmacy, [address] [place] [address], [place], [id number], 5 16:10:19 methylpredn isolone 4 mg tablets in a dose pack 2024 025 [facility], [address] [place] [address], [place], [id number], 5 16:46:10 mupirocin 2 % topical ointment 2024 025 [facility], [address] [place] [address], [place], [id number], 5 10:49:08 amlodipine 5 mg tablet 2023 024 [facility], [address] [place] [address], [place], [id number], 4 13:06:18 hydrochloro thiazide 12.5 mg tablet 2023 024 [facility], [address] [place] [address], [place], [id number], 4 13:06:23 metoprolol succinate ER 50 mg tablet,exte nded release 24 hr 2023 024 [facility], [facility] [address] [place], [id number], 4 13:06:27 lisinopril 40 mg tablet 2023 024 [facility], [address] [place], [place] [address], [id number], 4 13:06:21 amlodipine 5 mg tablet 2023 024 [facility], [address] [place], [place] [address], [id number], 4 14:30:10 spironolact one 25 mg tablet 2023 024 [facility], [address] [place] [address] [place], [id number], 4 12:42:14 ProAir HFA 90 mcg/actuati on aerosol inhaler 2023 024 [facility], [address] [place], [place] [address], [id number], 4 16:30:50 Symbicort 80 mcg-4.5 mcg/actuati on HFA aerosol inhaler 2023 024 [facility], [address] [place], [place] [address], [id number], 5 09:59:27 Patient TargetsNo targets recorded. 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 range Referring Physician: Shellie Denson, Family Medicine, Encounter Date: 06/25/2023 Results Created Date Observation Date Name Description Value Unit Range Abnormal Flag Note LastModifiedBy Organization Detail LastModifiedTime 06/21/1906/25/2023 LIPID PANEL , STAND CRISTINE cholesterol, total 222 mg/dL <200 high Not Available [facility] [place] [facility] [address] [place], [address], 06/25/2023 01:30:22 06/21/19 24 06/25/2023 LIPID PANEL , STAND CRISTINE HDL cholesterol 46 mg/dL > or = 50 low Not Available [facility] [place] [facility] [address] [place], [address], 06/25/2023 01:30:22 06/21/19 24 06/25/2023 LIPID PANEL , STAND CRISTINE triglyceride s 129 mg/dL <150 normal Not Available [facility] [place] [facility] [address] [facility] [place], [address], 06/25/2023 01:30:22 06/21/19 24 06/25/2023 LIPID PANEL , STAND CRISTINE LDL-choleste rol 151 mg/dL _(vivi c) high Refer ence range : <100 Fran able range <100 mg/dL for prima ry preve ntion ; <70 mg/dL for patie nts with CHD or diabe tic patie nts with > or = 2 CHD risk facto rs. LDL-C is now calcu lated using the Mary n-Hop kins calcu dc n, which is a valid ated novel metho d provi ding nicolas r accur acy than the Fried serenity equat ion in the estim ation of LDL-C . Mary n SS et al. EDUARDO. 2013; 310(1 9): 2061- 2068 (http ://ed ucati on.Qu joeyMinerva cathleenMobile Factory. com/f aq/FA Q164) Not Available [facility] [place] [facility] [address] [facility], [place], [address], 06/25/2023 01:30:22 06/21/19 24 06/25/2023 LIPID PANEL , STAND CRISTINE chol/HDLC ratio 4.8 (calc ) <5.0 normal Not Available [facility] [place] [facility] [address] [facility], [place], [address], 06/25/2023 01:30:22 06/21/19 24 06/25/2023 LIPID PANEL , STAND CRISTINE non HDL cholesterol 176 mg/dL _(vivi c) <130 high For patie nts with diabe sotero plus 1 major ASCVD risk facto r, treat ing to a non-H DL-C goal of <100 mg/dL (LDL- C of <70 mg/dL ) is consi dered a thera peuti c optio n. Not Available [facility] [place] [facility] [address] [facility] [place], [address], 06/25/2023 01:30:22 06/21/1906/25/2023 COMPR EHENS CRISTIAN METAB OLIC PANEL glucose 123 mg/dL 65-99 high Fasti ng refer ence inter eren For someo ne witho ut known diabe sotero, a gluco se value betwe en 100 and 125 mg/dL is consi stent with predi abete s and shoul d be confi rmed with a follo w-up test. Not Available [facility] [place] [facility] [address] [facility] [place], [address], 06/25/2023 01:30:23 06/21/19 24 06/25/2023 COMPR EHENS CRISTIAN METAB OLIC PANEL urea nitrogen (BUN) 8 mg/dL 7-25 normal Not Available [facility] [place] [facility] [address] [facility] [place], [address], 06/25/2023 01:30:23 06/21/19 24 06/25/2023 COMPR EHENS CRISTIAN METAB OLIC PANEL creatinine 0.82 mg/dL 0.50-1 .05 normal Not Available [facility] [place] [facility] [address] [place], [address], 06/25/2023 01:30:23 06/21/19 24 06/25/2023 COMPR EHENS CRISTIAN METAB OLIC PANEL eGFR 81 mL/mi n/1.7 3m2 > or = 60 normal Not Available [facility] [address] [place], [address], 06/25/2023 01:30:23 06/21/19 24 06/25/2023 COMPR EHENS CRISTIAN METAB OLIC PANEL BUN/creatini ne ratio SEE NOTE: (calc ) 6-22 Not Repor roman: BUN and Creat inine are withi n refer ence range . Not Available [facility] [place] [facility] [address] [place], [address], 06/25/2023 01:30:23 06/21/19 24 06/25/2023 COMPR EHENS CRISTIAN METAB OLIC PANEL sodium 138 mmol/ L 135-14 6 normal Not Available [facility] [place] [facility] [address] [place], [address], 06/25/2023 01:30:23 06/21/19 24 06/25/2023 COMPR EHENS CRISTIAN METAB OLIC PANEL potassium 3.1 mmol/ L 3.5-5. 3 low Not Available [facility] [address] [place], [address], 06/25/2023 01:30:23 06/21/19 24 06/25/2023 COMPR EHENS CRISTIAN METAB OLIC PANEL chloride 101 mmol/ L 98-110 normal Not Available [facility] [address] [place], [address], 06/25/2023 01:30:23 06/21/19 24 06/25/2023 COMPR EHENS CRISTIAN METAB OLIC PANEL carbon dioxide 28 mmol/ L 20-32 normal Not Available [facility] [address] [facility] [place], [address], 06/25/2023 01:30:23 06/21/19 24 06/25/2023 COMPR EHENS CRISTIAN METAB OLIC PANEL calcium 9.0 mg/dL 8.6-10 .4 normal Not Available [facility] [address] [facility] [place], [address], 06/25/2023 01:30:23 06/21/19 24 06/25/2023 COMPR EHENS CRISTIAN METAB OLIC PANEL protein, total 6.9 g/dL 6.1-8. 1 normal Not Available [facility] [address] [facility] [place], [address], 06/25/2023 01:30:23 06/21/19 24 06/25/2023 COMPR EHENS CRISTIAN METAB OLIC PANEL albumin 4.1 g/dL 3.6-5. 1 normal Not Available [facility] [address] [facility] [place], [address], 06/25/2023 01:30:23 06/21/19 24 06/25/2023 COMPR EHENS CRISTIAN METAB OLIC PANEL globulin 2.8 g/dL_ (calc ) 1.9-3. 7 normal Not Available [facility] [address] [place], [address], 06/25/2023 01:30:23 06/21/19 24 06/25/2023 COMPR EHENS CRISTIAN METAB OLIC PANEL albumin/glob ulin ratio 1.5 (calc ) 1.0-2. 5 normal Not Available [facility] [address] [facility] [place], [address], 06/25/2023 01:30:23 06/21/19 24 06/25/2023 COMPR EHENS CRISTIAN METAB OLIC PANEL bilirubin, total 0.8 mg/dL 0.2-1. 2 normal Not Available [facility] [address] [facility] [place], [address], 06/25/2023 01:30:23 06/21/19 24 06/25/2023 COMPR EHENS CRISTIAN METAB OLIC PANEL alkaline phosphatase 61 U/L 37-153 normal Not Available [facility] [address] [facility] [place], [address], 06/25/2023 01:30:23 06/21/19 24 06/25/2023 COMPR EHENS CRISTIAN METAB OLIC PANEL AST 16 U/L 10-35 normal Not Available [facility] [address] [facility] [place], [address], 06/25/2023 01:30:23 06/21/19 24 06/25/2023 COMPR EHENS CRISTIAN METAB OLIC PANEL ALT 11 U/L 6-29 normal Not Available [facility] [address] [facility] [place], [address], 06/25/2023 01:30:23 06/21/19 24 06/25/2023 TSH TSH 2.49 mIU/L 0.40-4 .50 normal Not Available [facility] [address] [facility] [place], [address], 06/25/2023 01:30:24 06/21/19 24 06/25/2023 CBC (INCL UDES DIFF/ PLT) white blood cell count 8.3 thous and/u L 3.8-10 .8 normal Not Available [facility] [address] [facility] [place], [address], 06/25/2023 01:30:24 06/21/1906/25/2023 CBC (INCL UDES DIFF/ PLT) red blood cell count 4.89 chaya on/uL 3.80-5 .10 normal Not Available [facility] [address] [facility] [place], [address], 06/25/2023 01:30:24 06/21/1906/25/2023 CBC (INCL UDES DIFF/ PLT) hemoglobin 14.7 g/dL 11.7-1 5.5 normal Not Available [facility] [address] [facility] [place], [address], 06/25/2023 01:30:24 06/21/1906/25/2023 CBC (INCL UDES DIFF/ PLT) hematocrit 43.6 % 35.0-4 5.0 normal Not Available [facility] [address] [facility] [place] [place], [address], 06/25/2023 01:30:24 06/21/1906/25/2023 CBC (INCL UDES DIFF/ PLT) MCV 89.2 fL 80.0-1 00.0 normal Not Available [facility] [place], [address], 06/25/2023 01:30:24 06/21/1906/25/2023 CBC (INCL UDES DIFF/ PLT) MCH 30.1 pg 27.0-3 3.0 normal Not Available [facility] [address] [facility] [place], [address], 06/25/2023 01:30:24 06/21/19 24 06/25/2023 CBC (INCL UDES DIFF/ PLT) MCHC 33.7 g/dL 32.0-3 6.0 normal Not Available [facility] [address] [place], [address], 06/25/2023 01:30:24 06/21/1906/25/2023 CBC (INCL UDES DIFF/ PLT) RDW 12.5 % 11.0-1 5.0 normal Not Available [facility] [place] [facility] [address], [place], [address], 06/25/2023 01:30:24 06/21/1906/25/2023 CBC (INCL UDES DIFF/ PLT) platelet count 225 thous and/u L 140-40 0 normal Not Available [facility] [place] [facility] [address], [place], [address], 06/25/2023 01:30:24 06/21/19 24 06/25/2023 CBC (INCL UDES DIFF/ PLT) MPV 10.6 fL 7.5-12 .5 normal Not Available [facility] [address], [place], [address], 06/25/2023 01:30:24 06/21/19 24 06/25/2023 CBC (INCL UDES DIFF/ PLT) absolute neutrophils 6316 cells /uL 1500-7 800 normal Not Available [facility] [place] [facility] [address], [place], [address], 06/25/2023 01:30:24 06/21/19 24 06/25/2023 CBC (INCL UDES DIFF/ PLT) absolute lymphocytes 1087 cells /uL 850-39 00 normal Not Available [facility] [place] [facility] [address], [place], [address], 06/25/2023 01:30:24 06/21/19 24 06/25/2023 CBC (INCL UDES DIFF/ PLT) absolute monocytes 847 cells /uL 200-95 0 normal Not Available [facility] [place] [facility] [address], [place], [address], 06/25/2023 01:30:24 06/21/19 24 06/25/2023 CBC (INCL UDES DIFF/ PLT) absolute eosinophils 17 cells /uL 15-500 normal Not Available [facility] [place] [facility] [address] [facility] [address], [place], [address], 06/25/2023 01:30:24 06/21/19 24 06/25/2023 CBC (INCL UDES DIFF/ PLT) absolute basophils 33 cells /uL 0-200 normal Not Available [facility] [place] [facility] [address], [place], [address], 06/25/2023 01:30:24 06/21/19 24 06/25/2023 CBC (INCL UDES DIFF/ PLT) neutrophils 76.1 % normal Not Available [facility] [place] [facility] [address] [facility], [place], [address], 06/25/2023 01:30:24 06/21/19 24 06/25/2023 CBC (INCL UDES DIFF/ PLT) lymphocytes 13.1 % normal Not Available [facility] [place] [facility] [address] [facility] [address], [place], [address], 06/25/2023 01:30:24 06/21/19 24 06/25/2023 CBC (INCL UDES DIFF/ PLT) monocytes 10.2 % normal Not Available [facility] [place] [facility] [address], [place], [address], 06/25/2023 01:30:24 06/21/19 24 06/25/2023 CBC (INCL UDES DIFF/ PLT) eosinophils 0.2 % normal Not Available [facility] [place] [facility] [address] [facility], [place], [address], 06/25/2023 01:30:24 06/21/19 24 06/25/2023 CBC (INCL UDES DIFF/ PLT) basophils 0.4 % normal Not Available [facility] [address] [place], [address], 06/25/2023 01:30:24 06/21/19 24 06/25/2023 HEPAT ITIS C AB W/REF L TO HCV RNA, QN, PCR hepatitis C antibody NON-RE ACTIVE non-re active normal HCV antib kim was non-r eacti ve. There is no labor atory evide nce of HCV infec tion. In most cases , no furth er actio n is requi red. Howev er, if recen t HCV expos ure is suspe cted, a test for HCV RNA (test code 63291 ) is sugjose sted. For addit ional infor melinda beyer e refer to http: //[facility] shikha carr stdia gnost ics.c om/fa q/FAQ 22v1 (This link is being provi ded for infor melinda reyes/ educa tiana l purpo ses only. ) Not Available [facility] [place] [facility] [address] [place], [address], 06/25/2023 01:30:25 09/24/1909/27/2023 THINP REP TIS PAP clinical information: normal Shantell l exam Not Available [facility] [place] [facility] [address] [place], [address], 09/27/2023 15:31:24 09/24/19 24 09/27/2023 THINP REP TIS PAP LMP: normal NONE GIVEN Not Available [facility] [address] [place], [address], 09/27/2023 15:31:24 09/24/19 24 09/27/2023 THINP REP TIS PAP prev. Pap: normal NONE GIVEN Not Available [facility] [place] [facility] [address] [place], [address], 09/27/2023 15:31:24 09/24/19 24 09/27/2023 THINP REP TIS PAP prev. BX: normal NONE GIVEN Not Available [facility] [place] [facility] [address] [place], [address], 09/27/2023 15:31:24 09/24/19 24 09/27/2023 THINP REP TIS PAP source: normal Vagin a, Cervi x Not Available [facility] [place] [facility] [address] [place], [address], 09/27/2023 15:31:24 09/24/19 24 09/27/2023 THINP REP TIS PAP statement of adequacy: normal SATIS FACTO RY FOR EVALU ATION Not Available [facility] [place] [facility] [address], [place], [address], 09/27/2023 15:31:24 09/24/19 24 09/27/2023 THINP REP TIS PAP interpretati on/result: Cytol ogy Resul ts: Negat cristian for intra epith elial lesio n or malig humble . Atrop rhiannon schneider rn; predo belkys burroughs parab camilla cells Not Available [facility] [place] [facility] [address], [place], [address], 09/27/2023 15:31:24 09/24/19 24 09/27/2023 THINP REP TIS PAP comment: normal This Pap test has been evalu ated with compu ter elvira roman techn ology . Not Available [facility] [place] [facility] [address], [place], [address], 09/27/2023 15:31:24 09/24/19 24 09/27/2023 THINP REP TIS PAP cytotechnolo gist: normal TCM, CT( CP) CT Scree yakov Locat ion: [facility] nnati [employer] [place] [employer] , [facility] [place] [address] Not Available [facility] [place] [facility] [address], [place], [address], 09/27/2023 15:31:24 09/24/19 24 09/27/2023 THINP REP TIS PAP comment EXPLA NATOR Y NOTE: The Pap is a scree yakov test for cervi vivi cance r. It is not a diagn ostic test and is subje ct to false negat cristian and false posit cristian resul ts. It is most relia ble when a satis facto ry sampl e, regul jen obtai keshia, is submi tted with relev ant clini vivi findi ngs and histo ry, and when the Pap resul t is evalu ated along with histo hunter and curre nt clini vivi infor matio n. Not Available [facility] [place] [facility] [address] [facility], [place], [address], 09/27/2023 15:31:24 07/04/19 25 07/04/2024 LIPID PANEL , STAND CRISTINE cholesterol, total 233 mg/dL <200 high Not Available [facility] [place] [facility] [address], [place], [address], 07/04/2024 12:42:21 07/04/19 25 07/04/2024 LIPID PANEL , STAND CRISTINE HDL cholesterol 43 mg/dL > or = 50 low Not Available [facility] [place] [facility] [address], [place], [address], 07/04/2024 12:42:21 07/04/19 25 07/04/2024 LIPID PANEL , STAND CRISTINE triglyceride s 294 mg/dL <150 high If a non-f astin g speci men was colle cted, consi andi repea t trigl yceri de testi ng on a fasti ng speci men if clini dinorah indic ated. Tomas valero et al. J. of Clin. Lipid ol. 2015; 9:129 -169. Not Available [facility] [place] [facility] [address], [place], [address], 07/04/2024 12:42:21 07/04/19 25 07/04/2024 LIPID PANEL , STAND CRISTINE LDL-choleste rol 145 mg/dL _(vivi c) high Refer ence range : <100 Fran able range <100 mg/dL for prima ry preve ntion ; <70 mg/dL for patie nts with CHD or diabe tic patie nts with > or = 2 CHD risk facto rs. LDL-C is now calcu lated using the Mray n-Hop kins calcu latlaurie n, which is a valid ated novel metho d provi ding nicolas r accur acy than the [employer] seren[employer] equat ion in the estim ation of LDL-C . Mary n SS et al. EDUARDO. 2013; 310(1 9): 2061- 2068 (http ://ed ucati on.Qu Kannact. com/f aq/FA Q164) Not Available [facility] [place] [facility] [address] [facility], [place], [address], 07/04/2024 12:42:21 07/04/19 25 07/04/2024 LIPID PANEL , STAND CRISTINE chol/HDLC ratio 5.4 (calc ) <5.0 high Not Available [facility] [place] [facility] [address], [place], [address], 07/04/2024 12:42:21 07/04/19 25 07/04/2024 LIPID PANEL , STAND CRISTINE non HDL cholesterol 190 mg/dL _(vivi c) <130 high For patie nts with diabe sotero plus 1 major ASCVD risk facto r, treat ing to a non-H DL-C goal of <100 mg/dL (LDL- C of <70 mg/dL ) is consi dered a thera peuti c optio n. Not Available [facility] [place] [facility] [address], [place], [address], 07/04/2024 12:42:21 07/04/19 25 07/04/2024 COMPR EHENS CIRSTIAN METAB OLIC PANEL glucose 98 mg/dL 65-99 normal Fasti ng refer ence inter eren Not Available [facility] [place] [facility] [address] [place], [address], 07/04/2024 12:42:21 07/04/19 25 07/04/2024 COMPR EHENS CRISTIAN METAB OLIC PANEL urea nitrogen (BUN) 25 mg/dL 7-25 normal Not Available [facility] [address] [place] [place], [address], 07/04/2024 12:42:21 07/04/19 25 07/04/2024 COMPR EHENS CRISTIAN METAB OLIC PANEL creatinine 1.23 mg/dL 0.50-1 .05 high Not Available [facility] [address] [place], [address], 07/04/2024 12:42:21 07/04/19 25 07/04/2024 COMPR EHENS CRISTIAN METAB OLIC PANEL eGFR 50 mL/mi n/1.7 3m2 > or = 60 low Not Available [facility] [address] [place] [place], [address], 07/04/2024 12:42:21 07/04/19 25 07/04/2024 COMPR EHENS CRISTIAN METAB OLIC PANEL BUN/creatini ne ratio 20 (calc ) 6-22 normal Not Available [facility] [address] [place], [address], 07/04/2024 12:42:21 07/04/19 25 07/04/2024 COMPR EHENS CRISTIAN METAB OLIC PANEL sodium 137 mmol/ L 135-14 6 normal Not Available [facility] [address] [place], [address], 07/04/2024 12:42:21 07/04/19 25 07/04/2024 COMPR EHENS CRISTIAN METAB OLIC PANEL potassium 4.2 mmol/ L 3.5-5. 3 normal Not Available [facility] [address] [place], [address], 07/04/2024 12:42:21 07/04/19 25 07/04/2024 COMPR EHENS CRISTIAN METAB OLIC PANEL chloride 102 mmol/ L 98-110 normal Not Available [facility] [address] [place], [address], 07/04/2024 12:42:21 07/04/19 25 07/04/2024 COMPR EHENS CRISTIAN METAB OLIC PANEL carbon dioxide 27 mmol/ L 20-32 normal Not Available [facility] [address] [place], [address], 07/04/2024 12:42:21 07/04/19 25 07/04/2024 COMPR EHENS CRISTIAN METAB OLIC PANEL calcium 9.8 mg/dL 8.6-10 .4 normal Not Available [facility] [address] [place], [place] [address], [place], [address], 07/04/2024 12:42:21 07/04/19 25 07/04/2024 COMPR EHENS CRISTIAN METAB OLIC PANEL protein, total 7.0 g/dL 6.1-8. 1 normal Not Available [facility] [address] [place] [place], [address], 07/04/2024 12:42:21 07/04/19 25 07/04/2024 COMPR EHENS CRISTIAN METAB OLIC PANEL albumin 4.3 g/dL 3.6-5. 1 normal Not Available [facility] [address] [place] [place], [address], 07/04/2024 12:42:21 07/04/19 25 07/04/2024 COMPR EHENS CRISTIAN METAB OLIC PANEL globulin 2.7 g/dL_ (calc ) 1.9-3. 7 normal Not Available [facility] [address] [place] [place], [address], 07/04/2024 12:42:21 07/04/19 25 07/04/2024 COMPR EHENS CRISTIAN METAB OLIC PANEL albumin/glob ulin ratio 1.6 (calc ) 1.0-2. 5 normal Not Available [facility] [address] [place], [address], 07/04/2024 12:42:21 07/04/19 25 07/04/2024 COMPR EHENS CRISTIAN METAB OLIC PANEL bilirubin, total 0.5 mg/dL 0.2-1. 2 normal Not Available [facility] [address] [place], [address], 07/04/2024 12:42:21 07/04/19 25 07/04/2024 COMPR EHENS CRISTIAN METAB OLIC PANEL alkaline phosphatase 56 U/L 37-153 normal Not Available [facility] [address] [place], [address], 07/04/2024 12:42:21 07/04/19 25 07/04/2024 COMPR EHENS CRISTIAN METAB OLIC PANEL AST 15 U/L 10-35 normal Not Available [facility] [address] [place], [address], 07/04/2024 12:42:21 07/04/19 25 07/04/2024 COMPR EHENS CRISTIAN METAB OLIC PANEL ALT 13 U/L 6-29 normal Not Available [facility] [employer] [facility] [address] [place], [address], 07/04/2024 12:42:21 07/04/19 25 07/04/2024 HEMOG LOBIN A1C hemoglobin A1C 5.7 %_of_ total _HGB <5.7 high For shirlene butterfield witho ut known diabe sotero, a hemog lobin A1c value betwe en 5.7% and 6.4% is consi stent with predi abete s and shoul d be confi rmed with a follo w-up test. For someo ne with known diabe sotero, a value <7% indic ates that their diabe sotero is well contr olled . A1c targe ts shoul d be indiv idual ized based on durat ion of diabe sotero, age, comor bid condi tions , and other consi derat ions. This assay resul t is consi stent with an incre ased risk of diabe sotero. Curre ntly, no conse nsus exist s zhang wakefield use of hemog lobin A1c for diagn osis of diabe sotero for child yair. Not Available [facility] [place] [facility] [address] [facility], [place], [address], 07/04/2024 12:42:22 07/04/1907/04/2024 TSH TSH 4.57 mIU/L 0.40-4 .50 high Not Available [facility] [place] [facility] [address] [place], [address], 07/04/2024 12:42:23 07/04/19 25 07/04/2024 CBC (INCL UDES DIFF/ PLT) white blood cell count 6.7 thous and/u L 3.8-10 .8 normal Not Available [facility] [place] [facility] [address] [place], [address], 07/04/2024 12:42:23 07/04/19 25 07/04/2024 CBC (INCL UDES DIFF/ PLT) red blood cell count 4.49 chaya on/uL 3.80-5 .10 normal Not Available [facility] [place] [facility] [address] [place], [address], 07/04/2024 12:42:23 07/04/19 25 07/04/2024 CBC (INCL UDES DIFF/ PLT) hemoglobin 13.6 g/dL 11.7-1 5.5 normal Not Available [facility] [place] [facility] [address] [place] [place], [address], 07/04/2024 12:42:23 07/04/19 25 07/04/2024 CBC (INCL UDES DIFF/ PLT) hematocrit 41.0 % 35.0-4 5.0 normal Not Available [facility] [place] [facility] [address], [place], [address], 07/04/2024 12:42:23 07/04/19 25 07/04/2024 CBC (INCL UDES DIFF/ PLT) MCV 91.3 fL 80.0-1 00.0 normal Not Available [facility] [place] [facility] [address], [place], [address], 07/04/2024 12:42:23 07/04/19 25 07/04/2024 CBC (INCL UDES DIFF/ PLT) MCH 30.3 pg 27.0-3 3.0 normal Not Available [facility] [place] [facility] [address] [facility], [place], [address], 07/04/2024 12:42:23 07/04/19 25 07/04/2024 CBC (INCL UDES DIFF/ PLT) MCHC 33.2 g/dL 32.0-3 6.0 normal For adult s, a sligh t decre ase in the calcu lated MCHC value (in the range of 30 to 32 g/dL) is most likel y not clini dinorah signi fican t; robert er, it shoul d be inter prete d with cauti on in corre latio n with other red cell henri eters and the patie nt's clini vivi condi tion. Not Available [facility] [place] [facility] [address], [place], [address], 07/04/2024 12:42:23 07/04/19 25 07/04/2024 CBC (INCL UDES DIFF/ PLT) RDW 11.9 % 11.0-1 5.0 normal Not Available [facility] [place] [facility] [address], [place], [address], 07/04/2024 12:42:23 07/04/19 25 07/04/2024 CBC (INCL UDES DIFF/ PLT) platelet count 288 thous and/u L 140-40 0 normal Not Available [facility] [place] [facility] [address] [place], [address], 07/04/2024 12:42:23 07/04/19 25 07/04/2024 CBC (INCL UDES DIFF/ PLT) MPV 10.1 fL 7.5-12 .5 normal Not Available [facility] [address] [place], [address], 07/04/2024 12:42:23 07/04/19 25 07/04/2024 CBC (INCL UDES DIFF/ PLT) absolute neutrophils 4080 cells /uL 1500-7 800 normal Not Available [facility] [address] [place] [place], [address], 07/04/2024 12:42:23 07/04/19 25 07/04/2024 CBC (INCL UDES DIFF/ PLT) absolute lymphocytes 1802 cells /uL 850-39 00 normal Not Available [facility] [place] [facility] [address] [place], [address], 07/04/2024 12:42:23 07/04/19 25 07/04/2024 CBC (INCL UDES DIFF/ PLT) absolute monocytes 637 cells /uL 200-95 0 normal Not Available [facility] [place] [facility] [address] [place], [address], 07/04/2024 12:42:23 07/04/19 25 07/04/2024 CBC (INCL UDES DIFF/ PLT) absolute eosinophils 121 cells /uL 15-500 normal Not Available [facility] [address] [place], [address], 07/04/2024 12:42:23 07/04/19 25 07/04/2024 CBC (INCL UDES DIFF/ PLT) absolute basophils 60 cells /uL 0-200 normal Not Available [facility] [place] [facility] [address], [place], [address], 07/04/2024 12:42:23 07/04/19 25 07/04/2024 CBC (INCL UDES DIFF/ PLT) neutrophils 60.9 % normal Not Available [facility] [place] [facility] [address] [place], [address], 07/04/2024 12:42:23 07/04/19 25 07/04/2024 CBC (INCL UDES DIFF/ PLT) lymphocytes 26.9 % normal Not Available [facility] [place] [facility] [address] [place], [address], 07/04/2024 12:42:23 07/04/19 25 07/04/2024 CBC (INCL UDES DIFF/ PLT) monocytes 9.5 % normal Not Available [facility] [place] [facility] [address] [facility], [place], [address], 07/04/2024 12:42:23 07/04/19 25 07/04/2024 CBC (INCL UDES DIFF/ PLT) eosinophils 1.8 % normal Not Available [facility] [place] [facility] [address] [facility], [place], [address], 07/04/2024 12:42:23 07/04/19 25 07/04/2024 CBC (INCL UDES DIFF/ PLT) basophils 0.9 % normal Not Available [facility] [place] [facility] [address], [place], [address], 07/04/2024 12:42:23 07/28/19 25 07/28/2024 T4, FREE T4, free 1.0 NG/dL 0.8-1. 8 normal Not Available [facility] [place] [facility] [address] [facility] [place], [address], 07/28/2024 08:22:57 03/21/06/25/2023 pulmo nary funct ion test* No observ ation record ed. [email or web address] [facility] [address] [facility], [place], [address], 07/04/2023 15:10:29 Result Notes None recorded. Problems Name Problem SNOMED Code Status Onset Date Resolution Date Notes Provider Name and Address Organization Details Recorded Time Gastroesophag eal reflux disease 762023355 Active Shellie Denson MD [address], [address] [place] [address] , [facility] 4 22:05:38 Anxiety disorder 078188872 Active Shellie Denson MD [address], [address] [place] [address] , [facility] 4 22:05:38 Urinary tract infectious disease 54339080 Active Shellie Denson MD [address], [address] [place] [address] , [facility] 4 11:59:26 Essential hypertension 58451984 Active [facility] 5 10:48:49 Migraine 69624033 Active Shellie Denson MD [address] [place] [address] , [facility] 4 22:05:38 Acute upper respiratory infection 58543785 Active Not Available [facility] 3 03:01:08 Abdominal pain 09711746 Active Shellie Denson MD [address], [address] [place] [address] , [facility] 4 11:59:26 Problem Notes None recorded. Procedures Surgical History Date Name Laterality Status Provider Name and Address Organization Details Recorded Time 04/15/19 06 Other completed [facility] 09/22/2013 10:25:49 04/15/19 04 Cholecystectomy completed [facility] 09/22/2013 10:25:49 04/15/18 70 Hernia Repair completed [facility] 09/22/2013 10:25:49 Imaging Results None recorded. Procedure Notes None recorded. Medical Equipment None Reported. Allergies Allergen ID Allergen Name Allergen Category Reaction Reaction Severity Criticality Documentation Date Start Date Code Code System Note Provider Name and Address Organization Details Recorded Time 46563 Substance with sulfonami de structure and antibacte rial mechanism of action (substanc e) medicatio n Not available Not available Not available 06/22/2011 26284 8003 SNOMED Celena [facility] 2 10:41:02 Medications Name Sig Start Date Stop Date Status Note LastModified by Organization Details LastModified Time benadryl 25mg tab TAKE 2 TABLETS BY MOUTH TWICE DAILY NEEDED FOR HEADACHE MAY REPEAT ONCE IN 30 60 MINUTES IF NOT EFFECTIVE active Not Available Not Available No t Available amoxicillin 500 mg capsule 05/03 completed Not Available Not Available Not Available promethazin e-DM 6.25 mg-15 mg/5 mL oral syrup take 5 ML BY MOUTH EVERY 4 HOURS NEEDED 2024 active Not Available Not Available Not Avai lable azithromyci n 250 mg tablet TAKE 2 TABLETS BY MOUTH ON DAY 1, THEN TAKE 1 TABLET DAILY ON DAYS 2 THROUGH 5 active Not Available Not Available No t Available benzonatate 200 mg capsule Take 1 capsule 3 times a day by oral route for 10 days. 12/16 completed Not Available Not Available Not Available metoprolol succinate ER 50 mg tablet,exte nded release 24 hr TAKE 1 TABLET BY MOUTH EVERY EVENING 2024 active Not Available Not Available Not Avai lable promethazin e 12.5 mg tablet active Not Available Not Available Not Available lisinopril 20 mg tablet Take 1 tablet every day by oral route. 06/24 completed Not Available Not Available Not Available Mobic 7.5 mg tablet Take 1 tablet twice a day by oral route as needed. active Not Available Not Available No t Available atenolol 25 mg tablet TAKE ONE TABLET BY MOUTH ONCE DAILY 06/30 completed Not Available Not Available Not Available naproxen 250 mg tablet TAKE 1 TABLET BY MOUTH TWICE DAILY NEEDED FOR MIGRAINE HEADACHE active Not Available Not Available No t Available amlodipine 5 mg tablet TAKE ONE TABLET BY MOUTH EVERY DAY 2024 active Not Available Not Available Not Avai lable spironolact one 25 mg tablet Take 1 tablet every day by oral route in the morning. 12/16 completed Not Available Not Available Not Available butalbital- acetaminoph en-caffeine 50 mg-325 mg-40 mg tablet Take 1 tablet every 6-8 hours by oral route as needed. 01/08 completed Not Available Not Available Not Available levothyroxi ne 25 mcg tablet 1 po daily 06/30 completed Not Available Not Available Not Available ceftriaxone 1 gram solution for injection Take 0.5 g by injection route. 03/27 completed Not Available Not Available Not Available gabapentin 800 mg tablet Take 1 tablet twice a day by oral route. active Not Available Not Available No t Available antipyrine- benzocaine 5.4 %-1.4 % ear drops 02/05 completed Not Available Not Available Not Available benzonatate 100 mg capsule 05/20 completed Not Available Not Available Not Available hydrocodone 7.5 mg-acetamin ophen 325 mg tablet 12/16 completed Not Available Not Available Not Available Cipro 500 mg tablet Take 1 tablet every 12 hours by oral route for 10 days. 10/02 completed Not Available Not Available Not Available ranitidine 150 mg tablet TAKE ONE TABLET BY MOUTH 2 TIMES A DAY FOR ANTACID 05/03 completed Not Available Not Available Not Available lisinopril 10 mg tablet TAKE ONE TABLET BY MOUTH ONCE A DAY 07/31 completed Not Available Not Available Not Available promethazin e 25 mg tablet TAKE ONE TABLET BY MOUTH EVERY 4 HOURS NEEDED for nausea and vomiting 03/12 completed Not Available Not Available Not Available lisinopril 30 mg tablet TAKE ONE TABLET BY MOUTH EVERY DAY 07/09 completed Not Available Not Available Not Available omeprazole 20 mg capsule,del ayed release TAKE ONE CAPSULE BY MOUTH ONCE A DAY 2024 active Not Available Not Available Not Avai lable Banophen 25 mg capsule 09/27 completed Not Available Not Available Not Available butalbital- acetaminoph en-caffeine 50 mg-500 mg-40 mg tablet TAKE ONE TABLET BY MOUTH EVERY 4 TO 6 HOURS NEEDED .. GENERI C FOR ESGIC PLUS Rfs rem none 2012 active Not Available Not Available Not Avai lable hydroxyzine HCl 25 mg tablet TAKE 2 TABLETS BY MOUTH 3 TO 4 TIMES A DAY NEEDED FOR ANXIETY active Not Available Not Available No t Available mupirocin 2 % topical ointment APPLY A SMALL AMOUNT TO THE AFFECTED AREA THREE TIMES DAILY active Not Available Not Available No t Available metoprolol succinate ER 25 mg tablet,exte nded release 24 hr TAKE 1 TABLET BY MOUTH ONCE A DAY 11/30 completed Not Available Not Available Not Available dexamethaso ne sodium phosphate 4 mg/mL injection solution Inject 1 mL by intramusc ular route. 2024 active Not Available Not Available Not Avai lable Nasonex 50 mcg/actuati on [place] 2 sprays every day by intranasa l route. active Not Available Not Available No t Available ibuprofen 600 mg tablet only as needed active Not Available Not Available No t Available methylpredn isolone 4 mg tablets in a dose pack TAKE DIRECTED ON PACK FOR 6 DAYS active Not Available Not Available No t Available albuterol sulfate HFA 90 mcg/actuati on aerosol inhaler INHALE 2 PUFFS BY MOUTH EVERY 4 TO 6 HOURS NEEDED FOR WHEEZING -SHAKE WELL- 2024 active Not Available Not Available Not Avai lable lisinopril 40 mg tablet TAKE 1 TABLET BY MOUTH EVERY DAY 2024 active Not Available Not Available Not Avai lable ondansetron 4 mg disintegrat ing tablet active Not Available Not Available N ot Available cefdinir 300 mg capsule 1 po bid 03/27 completed Not Available Not Available Not Available topiramate 100 mg tablet TAKE 2 TABLETS BY MOUTH AT BEDTIME NIGHTLY active Not Available Not Available No t Available fluoxetine 20 mg capsule Take 1 capsule every day by oral route. active Not Available Not Available No t Available naproxen 500 mg tablet Take 1 tablet twice a day by oral route. 02/05 completed Not Available Not Available Not Available metoclopram vito 10 mg tablet TAKE 1 TABLET BY MOUTH TWICE DAILY NEEDED FOR HEADACHE; TAKE WITH NAPROXEN BENADRYL FOR HEADACHE COCKTAIL AT ONSET OF HEADACHE 07/31 completed Not Available Not Available Not Available amoxicillin 875 mg-michelle garcia clavulanate 125 mg tablet 11/30 completed Not Available Not Available Not Available Flexeril 10 mg tablet Take 1 tablet every 8 hours by oral route as needed. active Not Available Not Available No t Available Tessalon Perle 100 mg capsule Take 1 capsule 3 times a day by oral route as needed. 2011 active Not Available Not Available Not Avai lable topiramate 50 mg tablet TAKE 3 TABLETS BY MOUTH AT BEDTIME 07/31 completed Not Available Not Available Not Available Allergy Relief (diphenhydr amine) 25 mg tablet TAKE 2 TABLETS BY MOUTH TWICE DAILY NEEDED FOR HEADACHE REPEAT ONCE IN 30 60 MINUTES IF NOT EFFECTIVE 07/31 completed Not Available Not Available Not Available Phenergan 25 mg q 4-6 hr. prn 07/12 completed Not Available Not Available Not Available hydrochloro thiazide 12.5 mg tablet TAKE 1 TABLET BY MOUTH EVERY DAY 2024 active Not Available Not Available Not Avai lable Symbicort 160 mcg-4.5 mcg/actuati on HFA aerosol inhaler INHALE 2 PUFFS BY MOUTH 2 TIMES A DAY 2024 active Not Available Not Available Not Avai lable Symbicort 80 mcg-4.5 mcg/actuati on HFA aerosol inhaler Inhale 2 puffs twice a day by inhalatio n route for 30 days. 07/09 completed Not Available Not Available Not Available omeprazole 20 mg tablet,orlando yed release 1 po daily 06/30 completed Not Available Not Available Not Available diclofenac 1 % topical gel active Not Available Not Available Not Available Aimovig Autoinjecto r 140 mg/mL subcutaneou s auto-inject or INJECT 1 SYRINGE SUBCUTANE OUSLY ONCE EVERY MONTH FOR MIGRAINES active Not Available Not Available No t Available Ubrelvy 100 mg tablet TAKE ONE TABLET BY MOUTH NEEDED AT ONSET OF MIGRAINE ABORTIVE. DO NOT EXCEED 2 DOSES IN A 24 HOUR PERIOD, UNLESS OTHERWISE INSTRUCTE D BY YOUR PHYSICIAN active Not Available Not Available No t Available Vitals Date Recorded Heart rate Systolic And Diastolic Provider Name and Address Organization Details Last Updated DateTime 06/25/2023 70 /min 158/98 mm[Hg] Shellie Denson MD [address] [facility], [place], [address], [facility] 06/25/2023 16:17:22 Date Recorded Body height Body mass index (BMI) Body weight Heart rate Oxygen saturation Oxygen saturation in Arterial blood by Pulse oximetry Body temperature Systolic And Diastolic Provider Name and Address Organization Details Last Updated DateTime 4 165.1 cm 26.5 kg/m2 63204.2 9 g 85 /min 94 % 94 % 97.9 [degF] 180/108 mm[Hg] [facility] 4 15:24:28 Date Recorded Body height Body weight Heart rate Oxygen saturation Oxygen saturation in Arterial blood by Pulse oximetry Body temperature Systolic And Diastolic Provider Name and Address Organization Details Last Updated DateTime 5 165.1 cm 44849.6 2 g 86 /min 98 % 98 % 98.1 [degF] 136/76 mm[Hg] [facility] 5 09:02:43 Date Recorded Body height Body mass index (BMI) Body weight Heart rate Oxygen saturation Oxygen saturation in Arterial blood by Pulse oximetry Body temperature Systolic And Diastolic Provider Name and Address Organization Details Last Updated DateTime 5 165.1 cm 25.6 kg/m2 72865.9 2 g 73 /min 97 % 97 % 98.1 [degF] 122/67 mm[Hg] [facility] 5 15:15:48 Date Recorded Body height Body mass index (BMI) Body weight Heart rate Oxygen saturation Oxygen saturation in Arterial blood by Pulse oximetry Body temperature Systolic And Diastolic Provider Name and Address Organization Details Last Updated DateTime 4 165.1 cm 26.2 kg/m2 57611.4 g 76 /min 96 % 96 % 97.9 [degF] 177/104 mm[Hg] [facility] 4 13:36:27 Date Recorded Body height Body mass index (BMI) Body weight Heart rate Oxygen saturation Oxygen saturation in Arterial blood by Pulse oximetry Body temperature Systolic And Diastolic Provider Name and Address Organization Details Last Updated DateTime 4 165.1 cm 26 kg/m2 87757.4 1 g 76 /min 97 % 97 % 98.2 [degF] 154/97 mm[Hg] [facility] 4 11:10:51 Social History Question Answer Notes LastModified by Organizat ion Details LastModified Time Tobacco Smoking Status Never Smoker Not Available [facility] 02/09/2020 03:11:17 Do You Have An Advance Directive? No [id number] Information not available 02/09/2020 Animal Exposure? Yes Informat ion not available 09/22/2013 Auto Related Injury? No Information not available 09/22/2013 Is Blood Transfusion Acceptable In An Emergency? Yes [id number] Information not available 02/09/2020 What Is Your Level Of Caffeine Consumption? Occasional [id number] Information not available 02/09/2020 Diabetes No Information no t available 09/22/2013 What Type Of Diet Are You Following? REGULAR [id number] Information not available 02/09/2020 Education 2 Year College GED Informatio n not available 09/22/2013 What Is The Highest Grade Or Level Of School You Have Completed Or The Highest Degree You Have Received? [id number] Information not available 06/27/2023 Family History Of Heart Disease? Yes Information not available 09/22/2013 Which Of Your Hands Is Dominant? Right [id number] Information not available 02/09/2020 High Blood Pressure Yes Information not available 09/22/2013 High Cholesterol No Informat ion not available 09/22/2013 Live Alone Or With Others? With Others Information not available 09/22/2013 Marital Status Informatio n not available 06/22/2011 What Was The Date Of Your Most Recent Tobacco Screening? 07/09/2024 Information not available 07/09/2024 How Many Children Do You Have? 3 [id number] Information not available 02/09/2020 What Is Your Relationship Status? Information not available 06/30/2020 Seat Belts Used Routinely Yes Information not available 09/22/2013 Smoke Alarm In Home No Information not available 09/22/2013 How Much Tobacco Do You Smoke? No [id number] Information not available 02/09/2020 General Stress Level High Information not available 09/22/2013 Do You Use Sunscreen Routinely? No [id number] Information not available 02/09/2020 Work Related Injury? No Information not available 09/22/2013 Sex: Unknown Functional Status Question Answer Note LastModified by Organizat ion Details LastModified Time Do you or have you ever used any other forms of tobacco or nicotine? No Information not available 06/30/2020 What is your level of alcohol consumption? None [id number] Information not available 02/09/2020 Are you currently employed? No [id number] Information not available 02/09/2020 Are you able to care for yourself independently? 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 Occasional [id number] Information not available 02/09/2020 Mental Status None recorded. Family History Relationship Description Onset Age of this Age Resolved Age Notes LastModified by Organization Details LastModified Time Father Problem 77 INFECT ION IN BRAIN Not available 09/22/2013 10:25:49 Father Heart disease Not available 2013 10:25:49 Mother Problem ALIVE- STROKE Not available 09/22/2013 10:25:49 Mother Hypertensive disorder Not available 2013 10:25:49 Sister Hypertensive disorder ALIVE Not available 2013 10:25:49 Medical History No medical history recorded. Gynecological HistoryNo gynecological history recorded. Obstetrics History GPAL:G 0 P 0 0 0 0 Immunizations Vaccine Type Date Status Note Provider Nam e and Address Organization Details Recorded Time Td (adult) 12/14/2010 completed [facility] 08/21/2013 15:02:01 zoster recombinant 07/10/2022 completed Shellie Denson MD [address] [place] [address], [id number] 07/29/2022 21:28:44 zoster recombinant 10/11/2022 completed [facility] 10/11/2022 10:31:03 Past Encounters Encounter ID Performer Location Encounter Start Date Encounter Closed Date Diagnosis/Indication Diagnosis SNOMED-CT Code Diagnosis ICD10 Code Diagnosis IMO Codes Diagnosis Note Shellie Denson MD [facility] [address] [address] 06/22/2011 09:35:49 06/22/2011 16:42:22 [id number] Shellie eDnson MD [address] [address] 09/22/2013 10:10:19 09/22/2013 12:03:59 Migraine 41340304 Abdominal pain 84784315 Gastroesop hageal reflux disease 664597551 Anxiety disorder 046705183 History of asthma 978111013 Urinary tr act infectious disease 98181990 [id number] Shellie Denson MD [facility] [address] [address] 12/09/2018 14:27:59 12/11/2018 09:46:26 Adult health examination 105966600 Z00.00 Essential hypertension 07118509 I10 Hyperlipidemia 26273115 E78.5 Hypothyroidism 32040526 E03.9 Fatigue 02155878 R53.83 Chronic he adache disorder 249221179 G43.719 Screening mammography 24 898346 Z12.31 Screening for malignant neoplasm of colon 526190431 Z12.11 Body mass index 25-29 - overweight 373721032 Z68.25 Depression screening 171 977049 Z13.31 [id number] Shellie Denson MD [facility] [address] [address] 06/30/2020 10:39:26 07/04/2020 08:11:24 History of asthma 527285923 Z87.09 Anxiety disorder 0988329 06 F41.9 Essential hypertension 52619384 I10 Gastroesop hageal reflux disease 468843328 K21.9 Screening for malignant neoplasm of colon 616406954 Z12.11 Screening mammography 24 657760 Z12.31 Adult heal th examination 002337344 Z00.00 Hyperlipidemia 48446740 E78.5 Chronic he adache disorder 845917726 G43.719 Body mass index 25-29 - overweight 665834564 Z68.25 Depression screening 171 692033 Z13.31 [id number] Shellie Denson MD [facility] [address] [place] [id number] 11/22/2020 15:43:24 11/24/2020 08:24:34 Acute lower respiratory tract infection 490216188 J22 [id number] Shellie Denson MD [facility] [address] [place] [id number] 03/27/2022 08:58:30 03/30/2022 08:07:46 Essential hypertension 12794207 I10 Adult heal th examination 483051552 Z00.00 History of asthma 689809 007 Z87.09 Anxiety disorder 2697087 06 F41.9 Gastroesop hageal reflux disease 983217023 K21.9 Screening for malignant neoplasm of colon 020467068 Z12.11 Screening mammography 24 951482 Z12.31 Hyperlipidemia 60118919 E78.5 Chronic he adache disorder 718465512 G43.719 Body mass index 25-29 - overweight 456201012 Z68.26 Depression screening 171 234168 Z13.31 Screening for cardiovascular system disease 542586669 Z13.6 [id number] Shellie Denson MD [facility] [address] [place] [id number] 07/31/2022 16:07:34 08/03/2022 08:02:58 Essential hypertension 40011455 I10 Chronic ne ck pain for greater than 3 months 6071059170 40333 M54.2 [id number] Shellie Denson MD [facility] [address] [address] 11/30/2022 10:14:17 12/03/2022 08:57:32 Essential hypertension 43361253 I10 Obstructiv e sleep apnea syndrome 80402712 G47.33 Body mass index 25-29 - overweight 998521932 Z68.27 [id number] Shellie Denson MD [facility] [address] [address] 06/25/2023 15:17:54 06/29/2023 13:37:19 Adult health examination 950954606 Z00.00 Essential hypertension 59994126 I10 History of asthma 272372 007 Z87.09 Anxiety disorder 06 F41.9 Gastroesop hageal reflux disease 628592789 K21.9 Screening for malignant neoplasm of colon 400147420 Z12.11 Screening mammography 24 057451 Z12.31 Hyperlipidemia 65639613 E78.5 Chronic he adache disorder 802832041 G43.719 Body mass index 25-29 - overweight 711484424 Z68.26 Depression screening 171 810180 Z13.31 Screening for cardiovascular system disease 637964997 Z13.6 Blood pres sure outside reference range 82807940 Z01.31 [id number] Shellie Denson MD [facility] [address] [address] 09/24/2023 13:22:37 09/26/2023 08:40:07 Screening for malignant neoplasm of cervix 122031384 Z12.4 Essential hypertension 50676404 I10 [id number] Shellie Denson MD [facility] [address] [address] 12/17/2023 10:49:07 12/20/2023 10:56:58 Essential hypertension 61586887 I10 [id number] Shellie Denson MD [facility] [address] [address] 07/09/2024 08:49:34 07/13/2024 09:58:37 Adult health examination 565494669 Z00.00 Essential hypertension 12733573 I10 History of asthma 676370 007 Z87.09 Anxiety disorder 06 F41.9 Gastroesop hageal reflux disease 974689865 K21.9 Screening mammography 24 975703 Z12.31 Hyperlipidemia 35611166 E78.5 Chronic he adache disorder 684372751 G43.719 Body mass index 25-29 - overweight 939187216 Z68.26 Depression screening 171 422286 Z13.31 Screening for cardiovascular system disease 973491205 Z13.6 Immunization advised 310 471299 Z71.9 Abrasion o f skin of right upper arm 9011430227 0225783 S40.811A Serum thyr oid stimulating hormone level outside reference range 774364706 R89.1 Medication review done by doctor 330277289 Z76.89 [id number] Shellie Denson MD [facility] [address] [facility] [address] [place] [address] 08/10/2024 15:05:53 08/10/2024 16:12:53 Acute lower respiratory tract infection 675631085 J22 Asthma - c urrently active 848435669 J45.909 177250 Health Concerns Section Related Observation LastModified by Organization Detai ls LastModified Time None Recorded Concern Status LastModified by Organization Details LastModified Time None Recorded Advance Directives Directive N: Payers Insurance Date Sequence Insurance Name Policy Number Policy Dobbins Covered Member ID Dobbins Member ID Guarantor Name 03/27/2022 1 [facility] Kalani Pack [id number] Kalani Pack 12/09/2018 1 *SELF PAY* Sa ndra Pack 08/10/2024 1 [facility] Kalani Pack [id number] Kalani Pack Notes Date Note Type Note Provider Name and Address Organization Details Recorded Time 06/25/2023 text/html she states she is compliant with her BP meds and it gets high in doctor offices but she does check it at home and it varies and the systolic is still running 160s at homeHer mother has a history of strokes. She cam feel her BP getting real high and if she does not take the meds she can tell it. She has stopped drinking pepsi and drinks more juice, water and plain tea. Shellie Denson MD [address] [facility], [address], [place], [address], [facility] 06/27/2023 16:45:20 09/24/2023 text/html she has been fencing all day with barbed wire. States she could not take either spironolactone or hctz as they make her vomit. She is compliant with metoprolol and lisinopril We will add amlodipine 5 mgThey are traveling to [place] soon as their son graduates from training and will be working as a medic. Shellie Denson MD [address] [address], [place], [address], [facility] 09/25/2023 22:08:19 12/17/2023 text/html she has actually been feeling well and they recently visited [place] where there son has finished training and is now stationed in [facility]. He is learning to be a medic.She could not tolerate spironolactone as it made her vomit.We reviewed meds but she thinks she is only taking 3 BP meds when she should be on 4 Shellie Denson MD [address] [facility], [address] [address], [place], [address], [facility] 12/17/2023 13:06:53 07/09/2024 text/html she does a lot of things with her granddaughter who buys and sells tack. The enjoy a lot of trail riding and she got some thistle scratches on her arms.Is using her inhalers a little more frequently with activities Shellie Denson MD [address] [facility], [address] [address], [place], [address], [facility] 07/09/2024 21:47:56 08/10/2024 text/html she has been coughing for 2 weeks at night and has to sit up at night. No fevers or chills but her throat gets sore Taking cold and cough for hypertension. Shellie Denson MD [address] [facility], [address], [address], [facility] 08/10/2024 16:11:45 OBGyn Episode No OBEpisode recorded.
== END 2025-01-26 23:59 | disposition home or self-care (01) ==
LOC: RAD 07:54
PROVIDERS: PCP Family Medicine; Visit Provider Family Medicine
DX: Z12.31 Encounter for screening mammogram for malignant neoplasm of breast (principal); R92.323 Mammographic fibroglandular density, bilateral breasts
CPT/HCPCS: 77063; 77067